=== PATIENT | male | born 1955 | race Caucasian/White ===

== ENCOUNTER 2017-02-02 15:22 | Emergency (ER) | payer OTHER ==
[~2017-02-02] VITALS: Ht 165.1 cm; Wt 63.5 kg
[2017-02-02 15:22] VITALS: BP 151/94
[~2017-02-02 15:22] MED LIST: AMLO5TAB2 PO; CARV3.12 PO; CLIN300C97 PO; FOLI1TAB16 PO; HYDR-3326 PO; RIFA300C4 PO
[2017-02-02] MEDS ORDERED: HYDROCODONE/APAP 10/325MG 1 EA TABLET PO ONE (16:00)
[2017-02-02] MEDS ORDERED: HYDROCODONE/APAP 10/325MG 1 EA TABLET ONE (16:03)
== END 2017-02-02 16:09 | disposition home or self-care (01) ==
LOC: ER 15:23
DX: M54.5 Low back pain (principal); G89.29 Other chronic pain; Z88.0 Allergy status to penicillin; F17.210 Nicotine dependence, cigarettes, uncomplicated; F10.20 Alcohol dependence, uncomplicated; Z59.0 Homelessness
CPT/HCPCS: 99282; A4606; Z7610

== ENCOUNTER 2017-03-15 12:41 | Emergency (ER) | payer OTHER ==
[~2017-03-15] VITALS: Ht 175.3 cm; Wt 70.3 kg
[2017-03-15 12:45] VITALS: BP 118/75
[2017-03-15] MEDS ORDERED: LIDOCAINE HCL/PF 1% 30 ML VIAL TP ONE (13:00)
[2017-03-15] MEDS ORDERED: ACETAMINOPHEN ES 500 MG TABLET PO ONE (13:00)
[2017-03-15] MEDS ORDERED: BACI/NEOM/POLY B OINT PKT 1 UDPKT PACKET TP ONE (13:00)
[2017-03-15] MEDS ORDERED: LIDOCAINE HCL/PF 1% 30 ML SDV ONE (13:05)
[2017-03-15] MEDS ORDERED: ACETAMINOPHEN ES 500 MG TABLET ONE (13:16)
[2017-03-15] MEDS ORDERED: BACI/NEOM/POLY B OINT PKT 1 UDPKT PACKET ONE (13:16)
== END 2017-03-15 15:11 | disposition home or self-care (01) ==
LOC: ER 12:42
DX: S01.81XA Laceration without foreign body of other part of head, initial encounter (principal); M16.0 Bilateral primary osteoarthritis of hip; M85.80 Other specified disorders of bone density and structure, unspecified site; Z59.0 Homelessness; Z88.8 Allergy status to other drugs, medicaments and biological substances; Z88.0 Allergy status to penicillin; V19.3XXA Pedal cyclist (driver) (passenger) injured in unspecified nontraffic accident, initial encounter; Y93.55 Activity, bike riding; Y92.488 Other paved roadways as the place of occurrence of the external cause; Y99.8 Other external cause status
CPT/HCPCS: 73502; 73552; A4606; A6402; J3490; Z7610

== ENCOUNTER 2017-11-22 11:40 | Inpatient (IN) | payer OTHER ==
[2017-11-22] VITALS (18 sets, daily range): BP systolic 87–168; BP diastolic 36–126
[~2017-11-22] VITALS: Ht 170.2 cm; Wt 91.2 kg
[~2017-11-22 11:40] MED LIST changes: +CLIN300C11 PO; -CLIN300C97 PO; -HYDR-3326 PO; +HYDR-3974 PO
--- NOTE | 2017-11-22 11:41 | NUR ---
[id number] FROM [facility]: SEVERE SOB, NITRO x 3 GIVEN IN FIELD BY EMS - NO RELIEF. PT VERBALIZED GOT KICKED ON LEFT SIDE OF RIB. PLACED ON MONITOR. MD ORDERED ON BIPAP IPAP 27 EPAP 10 RATE 39.
[2017-11-22] MEDS ORDERED: NTG 50 MG/D5W250 ML BOTTL 250 ML IV ONE ×2 (11:44→12:00)
[2017-11-22] MEDS ORDERED: FUROSEMIDE 40 MG/4 ML VIAL ONE (11:44)
--- NOTE | 2017-11-22 11:49 | NUR ---
RT PATIENT REC'D IN ER WITH SEVERE SOB, PER DR LR PLACED ON BIPAP 14/07 R20 100%. ALARMS CHECKED + AUDIBLE. MASK HAS MINIMAL LEAK. PATIENT ABLE TO RESPOND AT THIS MOMENT Addendum: 11/22/17 at 1151 by GERMAN LYONS RT Amended: Links added.
[2017-11-22] MEDS ORDERED: FUROSEMIDE 40 MG/4 ML VIAL IV ONE (12:00)
--- NOTE | 2017-11-22 12:10 | NUR ---
SWAIN FR 16 INSERTED DARK RED URINE OUTPUT DR LR MADE AWARE
[2017-11-22 12:47] LABS: INR 1.32 (0.85-1.15)
[2017-11-22 12:50] LABS: CALCIUM, SERUM 8.3 mg/dL (8.5-10.1); CARBON DIOXIDE 16 mmol/L (21-32); CHLORIDE 98 mmol/L (98-107); CREATININE 0.9 mg/dL (0.6-1.3); GLUCOSE 79 mg/dL (74-106); POTASSIUM 6.1 mmol/L (3.5-5.1); SODIUM SERUM 140 mmol/L (136-145); UREA NITROGEN, BLOOD 15 mg/dL (7-18)
[2017-11-22] MEDS ORDERED: SODIUM POLYSTYRENE SULFONATE 15 G/60 ML BOTTLE PO ONE (13:00)
[2017-11-22 13:01] LABS: ALANINE AMINOTRANSFERASE 139 U/L (12-78); ALBUMIN 2.1 g/dL (3.4-5.0); ALKALINE PHOSPHATASE 720 U/L (46-116); ASPARTATE AMINOTRANSFERASE 838 U/L (15-37); B-TYPE NATRIURETIC PEPTIDE 659 PG/ML (0-125); BILIRUBIN,TOTAL 14.6 mg/dL (0.2-1.0); TOTAL PROTEIN, SERUM 6.9 g/dL (6.4-8.2); TROPONIN I 0.374 ng/mL (0.00-0.056)
--- NOTE | 2017-11-22 13:19 | NUR ---
PATIENT ASSIGNED TO ICU 261, RN TO RN REPORT CAN BE GIVEN TO FREDO ADMITTING DR FINLEY DOG SHOW JUDGE PANEL ADMITTING DX HEART FAILURE
[2017-11-22] MEDS ORDERED: LEVOFLOXACIN 750 MG /D5W 150ML PIGGYBACK IV ONE (13:30)
[2017-11-22] MEDS ORDERED: VANCOMYCIN 1 GM in IV D5W 250 ML IV ONE (13:30)
[2017-11-22 13:32] LABS: BASOPHILS % (AUTO) 0.1 % (0.0-2.0); EOSINOPHILS % (AUTO) 0.1 % (0.0-6.0); HEMOGLOBIN 12.7 g/dL (13.5-17.5); LYMPHOCYTES % (AUTO) 7.5 % (20.0-44.0); MONOCYTES # (AUTO) 1.4 /CMM (0.1-1.30); MONOCYTES % (AUTO) 10.1 % (2.0-12.0); NEUTROPHILS # (AUTO) 11.4 /CMM (1.8-8.9); NEUTROPHILS % (AUTO) 82.2 % (43.0-81.0); PLATELET COUNT (AUTO) 215 /CMM (150-450); WHITE BLOOD COUNT (AUTO) 13.8 K/uL (4.3-11.0)
[2017-11-22] MEDS ORDERED: SODIUM POLYSTYRENE SULFONATE 15 G/60 ML BOTTLE ONE (13:44)
--- NOTE | 2017-11-22 13:44 | NUR ---
CALLED PHARMACY FOR A VANCOMYCIN
[2017-11-22] MEDS ORDERED: LEVOFLOXACIN 750 MG /D5W 150ML 150 ML IV ONE (13:45)
--- NOTE | 2017-11-22 13:56 | NUR ---
PAGED SCREENING UNIT REGISTERED NURSE HOSPITALIST DR FINLEY
[2017-11-22 14:00] LABS: HEMATOCRIT 33 % (39-51); MEAN CORPUSCULAR HEMOGLOBIN 41 PG (26.0-33.0); MEAN CORPUSCULAR HGB CONC 36 g/dl (31.0-36.0); MEAN CORPUSCULAR VOLUME 112 fL (80-96)
[2017-11-22 14:01] LABS: RDW COEFFICIENT OF VARIATION 21.7 (11.5-15.0)
[2017-11-22] MEDS ORDERED: BUPR8TAB4 SL (14:10)
[2017-11-22] MEDS ORDERED: DIAZ2TAB PO (14:10)
[2017-11-22 14:17] LABS: BAND % (MANUAL) 8 % (0.0-5.0); LYMPHOCYTES % (MANUAL) 2 % (16-48); MONOCYTES % (MANUAL) 1 % (0-11.0); NEUTROPHILS % (MANUAL) 89 (42-76)
--- NOTE | 2017-11-22 14:29 | NUR ---
gave report to alisha dow ICU room 261 dx acute resp failure admitting dr soares
[2017-11-22 14:44] LABS: ABG BASE EXCESS -4.1 mmol/L; ABG OXYGEN SATURATION 99.1 % (92.0-98.5); ABG PCO2 40.2 mmHg (35.0-45.0); ABG PH 7.342 (7.350-7.450); ABG PO2 330.4 mmHg (75.0-100.0); AaDO2 342.4 mmHg; COHb 0.7 % (0.5-1.5); MetHb 0.5 % (0.0-1.5); O2Hb 97.9 % (94.0-97.0); SITE, ABG Right Radial; VENT MODE, BG BIPAP 25/10 R14 100%
--- NOTE | 2017-11-22 14:45 | NUR ---
PT BACK FROM CT
--- NOTE | 2017-11-22 15:00 | NUR ---
BIPAP 15/5 FIO2 80%
--- NOTE | 2017-11-22 15:03 | NUR ---
RT POST ABG RESULTS AND PER DR LR BIPAP SETTINGS CHANGED TO 01/02 80% Addendum: 11/22/17 at 1504 by GERMAN LYONS RT Amended: Links added.
[2017-11-22] MEDS ORDERED: NTG 50 MG/D5W250 ML BOTTL 250 ML IV PRN ×2 (16:30→18:30)
[2017-11-22] MEDS ORDERED: Calcium Gluconate 0.465 MEQ/ML VIAL IV ONE (16:30)
[2017-11-22] MEDS ORDERED: ONDANSETRON HCL/PF 4 MG/2 ML VIAL IVP PRN (16:30)
[2017-11-22] MEDS ORDERED: IV NS 0.9% 1,000 ML BAG IV ONE (16:30)
[2017-11-22] MEDS ORDERED: IV NS 0.9% 1,000 ML IV PRN (16:30)
[2017-11-22] MEDS ORDERED: FEE PK DOSING 1 MIN EA MC ONE (16:37)
--- NOTE | 2017-11-22 16:45 | NUR ---
PAPER GOODS MACHINE OPERATOR RECEIVED PATIENT FROM THE ER. PATIENT IS ALERT AND ORIENTED X 1-2. 4 PERSON ASSIST GURNEY TO BED TRANSFER. ABLE TO VERBALIZE NEEDS. ON BIPAP FOR RESP SUPPORT. SINUS TACH ON MONITOR. AFEBRILE. SWAIN DRAINING URINE TO GRAVITY. WILL CONTINUE TO MONITOR AND PROVIDE CARE.
[2017-11-22] MEDS: PANTOPRAZOLE 40 MG VIAL IV SCH (17:28)
--- NOTE | 2017-11-22 20:00 | NUR ---
TINNING MACHINE SET UP OPERATOR - NOTES - PT RECEIVED IN BED, ALERT AND ORIENTED X3, PT IS LETHARGIC AND HYPERVENTILATING ON BIPAP, RR 40S-50S. PT 02SAT 100%, LUNG SOUNDS CRACKLES. PT HAS F/C DRAINING MINIMAL DARK BROWN CONCENTRATED URINE. PT HAS 2 IVS L AC 18G AND R AC 20G. PT IS ON IVF NS @ 125 ML/HR. PT NOTED WITH MULTIPLE BRUISES. WILL CONTINUE TO MONITOR
--- NOTE | 2017-11-22 20:10 | NUR ---
KHAI MEJIA AT BEDSIDE TO ASSESS PT
[2017-11-22] MEDS: LEVOFLOXACIN 500 MG /D5W 100ML 500 MG in PREMIX 1 EA IV SCH (20:24)
[2017-11-22] MEDS: MEROPENEM 1 G in IV NS 0.9% 100 ML IV SCH ×2 (20:24→23:47)
--- NOTE | 2017-11-22 21:26 | NUR ---
DR MORGAN AT BEDSIDE TO ASSESS PT, PERFORMED ECHO. PT STILL BREATHING IN 40S 50S. PT COMPLAINED OF NAUSEA, ZOFRAN 4 MG GIVEN. WILL CONTINUE TO MONITOR
--- NOTE | 2017-11-22 22:11 | NUR ---
PT RECEIVED ON BIPAP 01/02, R 20, 80%. PT IS AWAKE AND ABLE TO FOLLOW COMMANDS. BIPAP ALARMS SET AND AUDIBLE. WILL CONTINUE TO MONITOR. Addendum: 11/22/17 at 2216 by PREM FARRELL RT Amended: Links added.
[2017-11-22 22:43] LABS: ABG BASE EXCESS -1.2 mmol/L; ABG OXYGEN SATURATION 97.9 % (92.0-98.5); ABG PCO2 40.1 mmHg (35.0-45.0); ABG PH 7.388 (7.350-7.450); ABG PO2 146.3 mmHg (75.0-100.0); COHb 0.2 % (0.5-1.5); MetHb 0.6 % (0.0-1.5); O2Hb 97.1 % (94.0-97.0); SITE, ABG Left Radial
--- NOTE | 2017-11-22 22:44 | NUR ---
STAT ABG DONE PER KIA. NOTIFIED HAMILTON JOY WITH RESULT. PH 7.38, CO2 40, PaO2 146, HCO3 23. BIPAP SETTINGS 15/5, R 20, 80%.
[2017-11-22 22:53] LABS: CALCIUM, SERUM 7.5 mg/dL (8.5-10.1); CREATININE 1.3 mg/dL (0.6-1.3); POTASSIUM 4.2 mmol/L (3.5-5.1)
[2017-11-22 22:58] LABS: ALBUMIN 1.5 g/dL (3.4-5.0)
--- NOTE | 2017-11-22 23:00 | NUR ---
PER EPIC DIRECTOR MARTHA ADAM, STOP IVF @ 125 ML/HR BECAUSE PT SOUNDS CONGESTED AND FLUID OVERLOADED, WILL CARRY OUT ORDER
[2017-11-22 23:07] LABS: TROPONIN I 1.179 ng/mL (0.00-0.056)
[2017-11-22] MEDS ORDERED: ENOXAPARIN SODIUM 80 MG/0.8 ML DISP.SYRIN SQ ONE (23:30)
[2017-11-22] MEDS ORDERED: ALBUMIN 25% 200 ML IV ONE (23:51)
--- NOTE | 2017-11-22 23:53 | NUR ---
PT FOUND OFF BIPAP. PT WAS PLACED ON NRB PER KIA.
[2017-11-23] VITALS (59 sets, daily range): BP systolic 72–131; BP diastolic 41–80
[2017-11-23] MEDS ORDERED: FUROSEMIDE 40 MG/4 ML VIAL IV ONE
[2017-11-23] MEDS: ALBUMIN 25% 25 GM in PREMIX 1 EA IV SCH ×4 (00:03→02:22)
[2017-11-23] MEDS: VANCOMYCIN 1 GM in IV D5W 250 ML IV SCH ×2 (00:36→13:46)
--- NOTE | 2017-11-23 01:00 | NUR ---
MARTHA ADAM INSTALLATION TECH AT BEDSIDE TO ASSESS PT, NEW ORDERS RECEIVED
[2017-11-23] MEDS ORDERED: ALBUMIN 25% 100 ML IV ONE (01:13)
[2017-11-23 02:37] LABS: OCCULT BLOOD STOOL POSITIVE (NEGATIVE)
[2017-11-23] MEDS: IPRATROPIUM NEB FS 0.5 MG/2.5 ML AMPUL.NEB NEB SCH ×6 (03:13→19:50)
[2017-11-23] MEDS: ALBUTEROL FS 2.5 MG/0.5 ML VIAL.NEB NEB SCH ×6 (03:13→19:50)
--- NOTE | 2017-11-23 03:40 | NUR ---
PT PLACED BACK ON BIPAP FIO2 100% BECAUSE HE WAS DESATTING 88% ON NRB 15LPM. PT LUNG SOUNDS CRACKLES AND CANNOT COUGH UP SECRETIONS
[2017-11-23] MEDS: LORAZEPAM INJ 2 MG/ML VIAL IV PRN ×2 (03:45→13:56)
--- NOTE | 2017-11-23 03:51 | NUR ---
PT PLACED BACK ON BIPAP DO TO LOW O2 SAT ON NRB. Addendum: 11/23/17 at 0352 by PREM FARRELL RT Amended: Links added.
[2017-11-23] MEDS: MEROPENEM 1 G in IV NS 0.9% 100 ML IV SCH ×3 (04:51→21:00)
[2017-11-23 05:27] LABS: ALBUMIN 2.9 g/dL (3.4-5.0); BILIRUBIN,TOTAL 12.6 mg/dL (0.2-1.0); CALCIUM, SERUM 7.6 mg/dL (8.5-10.1); CREATININE 1.3 mg/dL (0.6-1.3); POTASSIUM 4.2 mmol/L (3.5-5.1); TOTAL PROTEIN, SERUM 5.8 g/dL (6.4-8.2)
[2017-11-23 05:33] LABS: TROPONIN I 0.724 ng/mL (0.00-0.056)
[2017-11-23 05:50] LABS: BASOPHILS # (AUTO) 0.1 /CMM (0.0-0.2); BASOPHILS % (AUTO) 0.9 % (0.0-2.0); EOSINOPHILS % (AUTO) 0.1 % (0.0-6.0); LYMPHOCYTES # (AUTO) 1.1 /CMM (0.8-4.8); LYMPHOCYTES % (AUTO) 14.3 % (20.0-44.0); MONOCYTES # (AUTO) 0.3 /CMM (0.1-1.30); NEUTROPHILS # (AUTO) 6.3 /CMM (1.8-8.9); NEUTROPHILS % (AUTO) 80.7 % (43.0-81.0); WHITE BLOOD COUNT (AUTO) 7.8 K/uL (4.3-11.0)
[2017-11-23 06:09] LABS: RED BLOOD CELL COUNT(AUTO) 2.34 MIL/uL (4.5-6.0)
[2017-11-23 06:14] LABS: HEMATOCRIT 26 % (39-51)
[2017-11-23 06:15] LABS: HEMOGLOBIN 10.4 g/dL (13.5-17.5); MEAN CORPUSCULAR HEMOGLOBIN 42 PG (26.0-33.0); MEAN CORPUSCULAR HGB CONC 37 g/dl (31.0-36.0); MEAN CORPUSCULAR VOLUME 113 fL (80-96); RDW COEFFICIENT OF VARIATION 21.3 (11.5-15.0)
--- NOTE | 2017-11-23 07:54 | NUR ---
ICU/RN INITIAL NOTES,AM RECEIVED REPORT FROM NIGHT NURSE. PT RESTING IN BED. ON BIPAP WITH SETTINGS ORDERED BY MD, NO ACUTE DISTRESS NOTED AT THIS TIME. PT ALERT, AWAKE, FOLLOWS COMMANDS. ON TELE, PT SINUS. NPO AT THIS TIME. SWAIN CATH IN PLACE, DRAINING ROBIN URINE. PIV'S PATENT AND INTACT, NO S/S OF INFECTION OR INFILTRATION NOTED. PT DENIES ANY CHEST PAIN OR SOB ON BIPAP, WILL CONTINUE TO CLOSELY MONITOR. VSS. ALL SAFETY MEASURES TAKEN, BED IN LOW POSITION, SIDE RAILS UP, CALL LIGHT WITHIN REACH, WILL CONTINUE CARE.
[2017-11-23 08:29] LABS: ABG BASE EXCESS 0.7 mmol/L; ABG OXYGEN SATURATION 96.6 % (92.0-98.5); ABG PCO2 39.6 mmHg (35.0-45.0); ABG PH 7.421 (7.350-7.450); ABG PO2 105.8 mmHg (75.0-100.0); COHb 0.2 % (0.5-1.5); MetHb 0.5 % (0.0-1.5); O2Hb 95.9 % (94.0-97.0); SITE, ABG Right Radial; VENT MODE, BG ST 15/5 RR20 80%
[2017-11-23 08:39] LABS: PLATELET COUNT (AUTO) 105 /CMM (150-450)
[2017-11-23] MEDS: ENOXAPARIN SODIUM 80 MG/0.8 ML DISP.SYRIN SQ SCH ×2 (08:48→21:10)
[2017-11-23] MEDS: PANTOPRAZOLE 40 MG VIAL IV SCH (08:48)
[2017-11-23 09:26] LABS: BAND % (MANUAL) 36 % (0.0-5.0); LYMPHOCYTES % (MANUAL) 16 % (16-48); METAMYELOCYTES % 4 % (0-0); MONOCYTES % (MANUAL) 12 % (0-11.0); MYELOCYTES % 7 % (0-0); NEUTROPHILS % (MANUAL) 25 (42-76)
--- NOTE | 2017-11-23 12:40 | NUR ---
ICU/RN: PER PT REQUEST PT PLACED ON NONREBREATHER MASK 15LITERS, OK BY . WILL CONTINUE TO MONITOR AND ASSESS
--- NOTE | 2017-11-23 13:35 | NUR ---
ICU/RN: AT BEDSIDE. INFORMED HIM OF FREQUENT LOOSE BLACK STOOL. GI CONSULT ORDERED. PER MD NO STOOL SAMPLE NEEDED. ATIVAN WILL BE GIVEN PRN TO PREVENT ALCOHOL WITHDRAWAL. WILL CONTINUE TO MONITOR AND ASSESS.
--- NOTE | 2017-11-23 14:49 | NUR ---
RT MED NOTE UNABLE TO ADMINISTER HHN MED, PT CURRENTLY ON NRB MASK W/ SPO2 90-92%. UNABLE TO MAINTAIN ADEQUATE SPO2 ON HHN MASK
[2017-11-23] MEDS: ASPIRIN 81 MG TAB.CHEW PO SCH (14:53)
--- NOTE | 2017-11-23 15:30 | NUR ---
ICU/RN: PT DESATURATING, INCREASED WORK OF BREATHING, PLACED BACK ON BIPAP WITH PRESCRIBED SETTINGS. WILL CONTINUE TO MONITOR AND ASSESS
--- NOTE | 2017-11-23 16:01 | NUR ---
Manager Fine Consult was requested by Dr. Green regarding homelessness. Pt is a 62 year old male who was admitted to [facility] for shortness of breath. SW met with pt at bedside. Patient was difficult to understand due to his medical condition. Pt is alert and oriented x3. Pt states that he has been residing at [facility] ([address] [place] [address]) for the past 6 months. The pt's emergency contact is Negra Helton ([phone]). Patient denies any current suicidal or homicidal ideation. Patient denies any auditory or visual hallucinations. Patient denied smoking cigarettes, drinking, and doing drugs. However, upon admission pt.s alcohol level was 4. Patient reports receiving $1,800 in reduced fpc. SW provided patient with homeless resources including shelters, food gabriel resources, substance abuse referrals ([facility] [phone], [facility] [phone], and [facility]- [phone]) and local mental health clinics ([facility] [phone], [facility] [phone], and [facility] [phone]). Patient at this time is wanting to discharge to [facility] once he is medically cleared. He is refusing penitentiary placement. CLEMENCIA updated HAMILTON Maria regards to pt's disposition and homeless resources provided. Homeless Patient Waiver was completed and placed in the pt's chart.
--- NOTE | 2017-11-23 18:37 | NUR ---
ICU/RN: ENDING NOTES,AM REPORT WILL BE ENDORSED TO NIGHT NURSE FOR CONTINUATION OF CARE. ALL NEEDS MET. PT ON BIPAP WITH SETTINGS ORDERED BY MD.NO ACUTE DISTRESS NOTED AT THIS TIME. PT SINUS TACH ON TELE. PIV PATENT AND INTACT, NO S/S OF INFECTION OR INFILTRATION NOTED. PT BATHE, LINENS CHANGED, TURNED AND REPOSITIONED. SAFETY MEASURES TAKEN, BED IN LOW POSITION, SIDE RAILS UP, CALL LIGHT WITHIN REACH. WILL ENDORSE TO GET CONSENT FOR EGD WHEN BIPAP IS OFF, PT ALERT, AWAKE, FOLLOWS COMMANDS. POSSIBLE EGD IN AM
--- NOTE | 2017-11-23 19:30 | NUR ---
Received patient Dx: RESPIRATORY FAILURE secondary to PNA,NSTEMI,LIVER FAILURE,KIDNEY FAILURE Awake alert and oriented x 3.Respiration unlabored,tachypneic 40's on BIPAP rate 20 ,15/5,fio2 80% SPO2s 93%-95%.ST 105-107.NPO status with NS at TKO.FC to gravity drainage with dark gregorio urine. Denies pain.Call light at bedside within easy reach.
[2017-11-23] MEDS: LEVOFLOXACIN 500 MG /D5W 100ML 500 MG in PREMIX 1 EA IV SCH (19:33)
--- NOTE | 2017-11-23 20:25 | NUR ---
Patient incontinent of loose stool.Stool for C-diff collected and sent to lab.Perineal care done.Noted redness to perineal area.Remedy Z guard applied.Turned and repositioned.
[2017-11-23] MEDS: Z GUARD REMEDY 2 OZ OINT TP PRN ×3 (21:13→21:25)
[2017-11-23] MEDS: IV NS 0.9% 1,000 ML IV PRN (21:25)
--- NOTE | 2017-11-23 21:25 | NUR ---
Patient hemodynamically unstable.SBP's 70',low 80's. notified with orders received and carried out.
[2017-11-23] MEDS: Z GUARD REMEDY 2 OZ OINT TP SCH (21:26)
[2017-11-23] MEDS: METRONIDAZOLE 500MG/ NS 100ML 500 MG in PREMIX 1 EA IV SCH (21:37)
[2017-11-24] VITALS (108 sets, daily range): BP systolic 70–158; BP diastolic 31–86
[2017-11-24] MEDS: ALBUTEROL FS 2.5 MG/0.5 ML VIAL.NEB NEB SCH ×6 (00:07→20:11)
[2017-11-24] MEDS: IPRATROPIUM NEB FS 0.5 MG/2.5 ML AMPUL.NEB NEB SCH ×6 (00:07→20:11)
[2017-11-24] MEDS ORDERED: NOREPINEPHRINE 4 MG/4 ML AMPUL IV ONE (02:03)
[2017-11-24] MEDS: NOREPINEPHRINE 8 MG in IV D5W 500 ML IV PRN ×2 (02:30→23:10)
--- NOTE | 2017-11-24 02:30 | NUR ---
Patient BP remains unstable.Levophed gtt started at 1 mcg/min and will titrate accordingly.
[2017-11-24 04:29] LABS: CALCIUM, SERUM 7.1 mg/dL (8.5-10.1); CREATININE 1.7 mg/dL (0.6-1.3); POTASSIUM 3.6 mmol/L (3.5-5.1)
[2017-11-24] MEDS: MEROPENEM 1 G in IV NS 0.9% 100 ML IV SCH ×3 (04:30→22:10)
[2017-11-24] MEDS: METRONIDAZOLE 500MG/ NS 100ML 500 MG in PREMIX 1 EA IV SCH ×3 (05:30→21:12)
--- NOTE | 2017-11-24 08:00 | NUR ---
PATIENT AWAKE BUT APPEARS SOB ON BIPAP WITH PERIODS CONFUSION. KEEPS ON PULLING CABLES ON EKG AND BP. ATTEMPTS TO REMOVE BIPAP MASK. TACHYPNEIC AT HIGH 30'S. SPO2 92-94%. ONGOING LEVOPHED DRIP AT 3 MCG/MIN TO KEEP MAP >65. OLIGURIC WITH TEA COLORED URINE. KEPT ON NPO.
[2017-11-24] MEDS: PANTOPRAZOLE 40 MG VIAL IV SCH ×2 (08:28→18:12)
[2017-11-24] MEDS: Z GUARD REMEDY 2 OZ OINT TP SCH (08:29)
--- NOTE | 2017-11-24 08:30 | NUR ---
PATIENT SEEN BY DR. MORGAN. MD AWARE OF OVERNIGHTS EVENT AND PATIENT CONDITION. PER -OKANITA NOT TO GIVE LOVENOX AND ASPIRIN DUE TO POSSIBLE GIB.
[2017-11-24] MEDS: ASPIRIN 81 MG TAB.CHEW PO SCH (09:00)
[2017-11-24] MEDS: ENOXAPARIN SODIUM 80 MG/0.8 ML DISP.SYRIN SQ SCH ×2 (09:00→21:12)
--- NOTE | 2017-11-24 09:00 | NUR ---
PATIENT SEEN AND EXAMINED BY DR. VASQUEZ FOR RENAL FF UP. MD AWARE OF OLIGURIC STATE.
--- NOTE | 2017-11-24 09:50 | NUR ---
PATIENT SEEN AND EXAMINED BY DR. FINLEY . DISCUSSED WITH MD PRESENT CONDITION. MD AWARE OF MOTTLED LOWER EXTREMITIES, PT. ON LEVOPHED-OKAY START IVF WITH D5 NS AT 100 ML/HR FOR NPO STATUS AND DECREASED BS , DECREASED UO. ORDERES NOTED.
[2017-11-24 10:11] LABS: HEMOGLOBIN 10.4 g/dL (13.5-17.5); RED BLOOD CELL COUNT(AUTO) 2.75 MIL/uL (4.5-6.0); WHITE BLOOD COUNT (AUTO) 5.9 K/uL (4.3-11.0)
[2017-11-24 10:12] LABS: BASOPHILS % (AUTO) 0.5 % (0.0-2.0); EOSINOPHILS % (AUTO) 0.4 % (0.0-6.0); HEMATOCRIT 31 % (39-51); LYMPHOCYTES # (AUTO) 0.5 /CMM (0.8-4.8); LYMPHOCYTES % (AUTO) 7.7 % (20.0-44.0); MEAN CORPUSCULAR HEMOGLOBIN 40 PG (26.0-33.0); MEAN CORPUSCULAR HGB CONC 36 g/dl (31.0-36.0); MEAN CORPUSCULAR VOLUME 112 fL (80-96); MONOCYTES % (AUTO) 1.4 % (2.0-12.0); NEUTROPHILS # (AUTO) 5.6 /CMM (1.8-8.9); PLATELET COUNT (AUTO) 102 /CMM (150-450); RDW COEFFICIENT OF VARIATION 21.9 (11.5-15.0)
[2017-11-24 10:13] LABS: MONOCYTES # (AUTO) 0.1 /CMM (0.1-1.30)
--- NOTE | 2017-11-24 10:15 | NUR ---
PATIENT WITH INCREASED TACHYPNEA ON BIPAP AT 40'S. DR. CAMP ROUNDING AT THIS TIME. MD TO INTUBATE PATIENT.
--- NOTE | 2017-11-24 10:25 | NUR ---
INTUBATED BY DR. CAMP DUE TO INCREASED WOB ON BIPAP. ET TUBE SIZE 7.5 AND SECURED @ 23 CM LIPLINE. CO2 COLOR CHANGE TO GOLD COLOR POST INTUBATION WITH CLEAR BILATERAL BREATH SOUNDS. SYMMETRICAL CHEST RISE POST INTUBATION. VENT PARAMETERS BELLOW SET PER DR. CAMP: AC 20 VT 500ML FIO2 100% PEEP +5 VENT PLUGGED INTO RED OUTLET WITH ALARMS ON AND FUNCTIONING. AMBUBAG @ HOB. Addendum: 11/24/17 at 1052 by ANDREEA MCGRAW RT Amended: Links added.
--- NOTE | 2017-11-24 10:25 | NUR ---
PATIENT INTUBATED BY DR. CAMP WITH ETT 7.5 AT [facility] ON 1ST ATTEMPT WITH GOOD BILATERAL BS. STAT CXR ORDERED.
[2017-11-24] MEDS: IV D5/ 0.9% NACL 1,000 ML IV PRN (10:44)
[2017-11-24] MEDS: IV NS 0.9% 1,000 ML IV PRN (10:50)
[2017-11-24] MEDS ORDERED: VECURONIUM 10 MG VIAL IV ONE (11:01)
[2017-11-24] MEDS ORDERED: ETOMIDATE 2 MG/ML VIAL IV ONE (11:01)
[2017-11-24] MEDS ORDERED: SUCCINYLCHOLINE CHLORIDE 20 MG/ML VIAL IV ONE (11:01)
[2017-11-24 11:10] LABS: BAND % (MANUAL) 33 % (0.0-5.0); LYMPHOCYTES % (MANUAL) 7 % (16-48); METAMYELOCYTES % 3 % (0-0); MONOCYTES % (MANUAL) 4 % (0-11.0); MYELOCYTES % 1 % (0-0); NEUTROPHILS % (MANUAL) 52 (42-76)
--- NOTE | 2017-11-24 11:30 | NUR ---
POST INTUBATION ABG RESULTS RELAYED TO DR. CAMP. PH 7.13, PCO2 74, PO2 62, HCO3 24. ORDERS RECEIVED . VENT CHANGES DONE BY RT. SODIUM BICARB 1 AMP GIVEN. ABG AGAIN AT 1500.
[2017-11-24 11:32] LABS: ABG BASE EXCESS -5.8 mmol/L; ABG OXYGEN SATURATION 79.9 % (92.0-98.5); ABG PCO2 73.9 mmHg (35.0-45.0); ABG PH 7.137 (7.350-7.450); ABG PO2 61.9 mmHg (75.0-100.0); AaDO2 577.2 mmHg; COHb 0.7 % (0.5-1.5); MetHb 0.7 % (0.0-1.5); O2Hb 78.8 % (94.0-97.0); PEEP,BG 5 cm H2O; SITE, ABG Right Brachial; VT, ABG 500 mL
--- NOTE | 2017-11-24 11:48 | NUR ---
VENT ROLANDO JORGE ORDER: AC 24 Addendum: 11/24/17 at 1149 by ANDREEA MCGRAW RT Amended: Links added.
[2017-11-24] MEDS ORDERED: SODIUM BICARBONATE SYR 50 MEQ/50 ML DISP.SYRIN IV ONE (12:00)
--- NOTE | 2017-11-24 12:00 | NUR ---
PATIENT SPO2 REMAINS 84-86 ON 100 % FIO2. DR. CAMP AWARE WITH NO FURTHER ORDERS AT THIS TIME. PICC LINE NURSE AT BEDSIDE FOR EMERGENCY PICC LINE INSERTION PER DR. FINLEY ORDERS. PATIENT ON VASOPRESSORS AND HEMODYNAMICALLY UNSTABLE.
[2017-11-24] MEDS: methylPREDNISolone SOD SUCC 40 MG/ML VIAL IV SCH ×2 (13:22→16:15)
--- NOTE | 2017-11-24 13:35 | NUR ---
PATIENT SEEN BY DR. CAMP AT BEDSIDE- NO FURTHER ORDERS AT THIS TIME. CONTINUE CURRENT PLAN.
--- NOTE | 2017-11-24 15:06 | NUR ---
UNEVENTFUL PICC INSERTION. OK TO USE PICC LINE.
[2017-11-24 15:43] LABS: ABG BASE EXCESS -2.4 mmol/L; ABG OXYGEN SATURATION 90.2 % (92.0-98.5); ABG PCO2 54.2 mmHg (35.0-45.0); ABG PH 7.279 (7.350-7.450); ABG PO2 71.3 mmHg (75.0-100.0); AaDO2 587.5 mmHg; COHb 0.8 % (0.5-1.5); MetHb 0.7 % (0.0-1.5); O2Hb 88.8 % (94.0-97.0); PEEP,BG 5 cm H2O; SITE, ABG Right Brachial; VT, ABG 500 mL
--- NOTE | 2017-11-24 15:45 | NUR ---
ABG RESULTS RELAYED TO DR. CAMP- PH7.27, PCO2 54.2, PO2 71.3, HCO3 24.8. NO FURTHER ORDERS GIVEN. NO VENT CHANGES GIVEN. KEEP ON CURRENT VENT SETTINGS.
[2017-11-24] MEDS ORDERED: LACTOBACILLUS RHAMNOSUS GG 1 EACH CAP.SPRINK PO SCH (17:00)
--- NOTE | 2017-11-24 17:00 | NUR ---
PATIENT PLACED ON C. DIFF ISOLATION. + C. DIFF. ALTON SINGH FOR GI MADE AWARE. WILL CARRY OUT ORDERS.
[2017-11-24 17:24] LABS: ALBUMIN 2.3 g/dL (3.4-5.0); BILIRUBIN,DIRECT 6.6 mg/dL (0.0-0.2); BILIRUBIN,TOTAL 9.2 mg/dL (0.2-1.0); TOTAL PROTEIN, SERUM 5.5 g/dL (6.4-8.2)
[2017-11-24] MEDS: PROPOFOL 100 ML IV PRN ×2 (17:49→21:22)
[2017-11-24] MEDS: VANCOMYCIN HCL 125 MG/2.5 ML ORAL.SUSP PO SCH ×2 (18:12→23:38)
[2017-11-24] MEDS: LACTULOSE 10 G/15 ML UDC (PYXIS) PO SCH ×2 (18:12→22:10)
[2017-11-24] MEDS: RIFAXIMIN 550 MG TABLET PO SCH (18:13)
[2017-11-24 18:57] LABS: APPEARANCE,URINE CLOUDY (CLEAR); BILIRUBIN,URINE 3+ (NEGATIVE); BLOOD, URINE TRACE-INTA Ery/uL (NEGATIVE); COLOR,URINE BROWN (YELLOW); KETONES,URINE 1+ (NEGATIVE); LEUKOCYTE ESTERASE ,URINE TRACE (NEGATIVE); NITRITE, URINE POSITIVE (NEGATIVE); PROTEIN,URINE 1+ mg/dl (NEGATIVE); UGLUCOSE NEGATIVE (NEGATIVE)
--- NOTE | 2017-11-24 19:00 | NUR ---
ONGOING TITRATION OF LEVOPHED FOR BP SUPPORT. CURRENTLY AT 8 MCG/MIN. STARTED ON DIPRIVAN DRIP -NOW AT 30 MCG/KG/MIN. SPUTUM SAMPLE SENT. URINE SAMPLE SENT. NO BM ON MY SHIFT. PATIENT EX- VISITED. PER EX -PATIENT HAS 3 BROTHERS WHO ARE ALL ESTRANGED TO PATIENT BUT WILL NOTIFY THEM OF PATIENT CONDITION.
[2017-11-24 19:05] LABS: CREATININE, URINE 268.4 MG/DL (30.0-125.0); URINE TOTAL PROTEIN 126.5 mg/dL (0-11.9)
[2017-11-24 19:37] LABS: BACTERIA,URINE Few /HPF (None Seen); RBC,URINE 0-2 /HPF (0-2); SQUAMOUS EPITHELIAL CELL,UR Rare /HPF (None Seen); URINE AMORPHOUS URATE Moderate /HPF (None Seen)
[2017-11-24] MEDS: LEVOFLOXACIN 500 MG /D5W 100ML 500 MG in PREMIX 1 EA IV SCH (19:42)
--- NOTE | 2017-11-24 20:00 | NUR ---
Received patient sedated on Diprivan gtt @ 30 mcg currently on vent support with prescribed settings. No distress noted.VS stable.SR per monitor with Levophed gtt @ 8 mcg/min for BP support and will titrate accordingly.Maintained on NPO status with ivf infusing well.OGT clamped and placement verified. FC to gravity no urine output noted at this time.Turned and repositioned.Contact precaution for C-diff implemented.All iv's infusing well via richie picc line.Continue monitoring.
[2017-11-24 21:19] LABS: EOSINOPHIL,URINE None Seen
--- NOTE | 2017-11-24 22:30 | NUR ---
At 2225 Noted patient tele suddenly went to SVT 170's-180's.Called to .No orders received. States can't do anything patient on pressor.
--- NOTE | 2017-11-24 22:44 | NUR ---
SVT non sustained.AT this time patient tele shows ST 116- 118 without intervention.Continue monitoring.
[2017-11-24] MEDS: LINEZOLID RTU BAG 600 MG in PREMIX 1 EA IV SCH (23:03)
[2017-11-25] VITALS (81 sets, daily range): BP systolic 81–148; BP diastolic 25–87
[2017-11-25] MEDS: MORPHINE SULFATE INJ 4 MG/ML DISP.SYRIN IV PRN (02:30)
--- NOTE | 2017-11-25 02:30 | NUR ---
Patient grimacing during patient care.Paroxysmal SVT noted 170's-180's.BP stable. notified with order.PRN Morphine 2 mg iv given.Will reassess response to medication.
--- NOTE | 2017-11-25 02:35 | NUR ---
Patient with sustained SVT 170's,180's BP stable on Levophed gtt infusing at 14 mcg/min. notified with orders received and carried out.
--- NOTE | 2017-11-25 02:47 | NUR ---
Unable to administer medication Adenosin at this time patient converted to ST 108-108.Continue monitoring.
[2017-11-25] MEDS ORDERED: ADENOSINE 6 MG/2 ML VIAL IVP PRN ×3 (03:00)
[2017-11-25] MEDS ORDERED: AMIODARONE 900 MG in IV D5W 482 ML IV PRN (03:00)
[2017-11-25] MEDS ORDERED: AMIODARONE 150 MG in IV D5W 100 ML IV ONE (03:00)
[2017-11-25] MEDS: IV D5/ 0.9% NACL 1,000 ML IV PRN ×2 (03:01→17:50)
[2017-11-25] MEDS: IPRATROPIUM NEB FS 0.5 MG/2.5 ML AMPUL.NEB NEB SCH ×7 (04:06→23:37)
[2017-11-25] MEDS: ALBUTEROL FS 2.5 MG/0.5 ML VIAL.NEB NEB SCH ×7 (04:06→23:37)
[2017-11-25] MEDS: LACTULOSE 10 G/15 ML UDC (PYXIS) PO SCH ×4 (04:37→22:25)
[2017-11-25] MEDS: MEROPENEM 1 G in IV NS 0.9% 100 ML IV SCH ×3 (05:00→22:00)
[2017-11-25] MEDS: PROPOFOL 100 ML IV PRN ×3 (05:04→18:24)
[2017-11-25 05:12] LABS: CALCIUM, SERUM 6.3 mg/dL (8.5-10.1); CREATININE 2.9 mg/dL (0.6-1.3); POTASSIUM 4.1 mmol/L (3.5-5.1)
[2017-11-25] MEDS: VANCOMYCIN HCL 125 MG/2.5 ML ORAL.SUSP PO SCH ×4 (06:00→23:59)
[2017-11-25] MEDS: METRONIDAZOLE 500MG/ NS 100ML 500 MG in PREMIX 1 EA IV SCH ×3 (06:00→21:01)
--- NOTE | 2017-11-25 06:30 | NUR ---
NO further changes to cardiac rhythm.Amiodarone gtt not started.Patient remains sedated.No acute distress noted.Diprivan gtt infusing at 30 mcg and Levophed gtt at 10 mcg.All due medications administered. Turned and repositioned.No BM noted.Urine specimen sent.All needs attended.
--- NOTE | 2017-11-25 08:00 | NUR ---
RN NOTES RECEIVED PT IN BED, SEDATED ON DIPRIVAN DRIP. PT INTUBATED ETT 7.5 22CM ON LIPLINE WITH VENT SETTINGS PRESRCIBEDl: AC 24 TV 500 FIO2 100% PEEP 5. SR ON AUTOMOBILE SERVICE STATION MECHANIC. OGT CLAMPED. MYNOR PICC LINE CDI, ONGOING LEVOPHED@8MCG/MIN, DIPRIVAN@30MCG/KG/MIN, IVF D5NS@100ML/HR. FC PATENT, MIN URINE OUTPUT NOTED AT THIS TIME, HEMATURIA NOTED. BILATERAL SOFT WRIST RESTRAINTS RELEASED AND CHECKED FOR CIRCULATION. REPOSITIONED FOR COMFORT, SAFETY MAINTAINED. WILL CONT TO MONITOR
[2017-11-25] MEDS: ENOXAPARIN SODIUM 80 MG/0.8 ML DISP.SYRIN SQ SCH ×2 (08:25→21:05)
[2017-11-25] MEDS: PANTOPRAZOLE 40 MG VIAL IV SCH ×2 (08:26→17:08)
[2017-11-25] MEDS: methylPREDNISolone SOD SUCC 40 MG/ML VIAL IV SCH ×3 (08:26→17:08)
[2017-11-25] MEDS: RIFAXIMIN 550 MG TABLET PO SCH ×2 (08:26→17:08)
[2017-11-25] MEDS: ASPIRIN 81 MG TAB.CHEW PO SCH (08:26)
[2017-11-25] MEDS: Z GUARD REMEDY 2 OZ OINT TP SCH (08:27)
[2017-11-25] MEDS: LINEZOLID RTU BAG 600 MG in PREMIX 1 EA IV SCH ×2 (08:33→22:00)
[2017-11-25] MEDS: NOREPINEPHRINE 8 MG in IV D5W 500 ML IV PRN (08:45)
[2017-11-25 09:43] LABS: RED BLOOD CELL COUNT(AUTO) 2.89 MIL/uL (4.5-6.0); WHITE BLOOD COUNT (AUTO) 8.2 K/uL (4.3-11.0)
[2017-11-25 09:44] LABS: BASOPHILS % (AUTO) 0.1 % (0.0-2.0); EOSINOPHILS % (AUTO) 0.1 % (0.0-6.0); HEMATOCRIT 31 % (39-51); HEMOGLOBIN 10.4 g/dL (13.5-17.5); MEAN CORPUSCULAR HEMOGLOBIN 36 PG (26.0-33.0); MEAN CORPUSCULAR HGB CONC 34 g/dl (31.0-36.0); MEAN CORPUSCULAR VOLUME 106 fL (80-96); NEUTROPHILS % (AUTO) 87.8 % (43.0-81.0); PLATELET COUNT (AUTO) 96 /CMM (150-450); RDW COEFFICIENT OF VARIATION 22.2 (11.5-15.0)
[2017-11-25 09:45] LABS: LYMPHOCYTES # (AUTO) 0.6 /CMM (0.8-4.8); MONOCYTES # (AUTO) 0.4 /CMM (0.1-1.30); NEUTROPHILS # (AUTO) 7.2 /CMM (1.8-8.9)
[2017-11-25 09:48] LABS: BAND % (MANUAL) 16 % (0.0-5.0); LYMPHOCYTES % (MANUAL) 5 % (16-48); METAMYELOCYTES % 1 % (0-0); MONOCYTES % (MANUAL) 8 % (0-11.0); NEUTROPHILS % (MANUAL) 70 (42-76)
[2017-11-25 09:50] LABS: ABG OXYGEN SATURATION 93.5 % (92.0-98.5); ABG PCO2 47.4 mmHg (35.0-45.0); AaDO2 583.6 mmHg; COHb 0.3 % (0.5-1.5); MetHb 0.7 % (0.0-1.5); O2Hb 92.6 % (94.0-97.0); SITE, ABG Right Radial; VENT MODE, BG AC 24 500 100% +5
[2017-11-25] MEDS ORDERED: OCTREOTIDE 1,250 MCG in IV NS 0.9% 247.5 ML IV PRN ×4 (10:30)
[2017-11-25] MEDS: MIDODRINE HCL (5MG) 5 MG TABLET PO SCH ×2 (12:18→17:09)
[2017-11-25 13:06] LABS: CREATININE, URINE 228.5 MG/DL (30.0-125.0); URINE TOTAL PROTEIN 264.3 mg/dL (0-11.9)
[2017-11-25 13:06] LABS: APPEARANCE,URINE SL CLOUDY (CLEAR); BILIRUBIN,URINE 2+ (NEGATIVE); BLOOD, URINE TRACE-INTA Ery/uL (NEGATIVE); COLOR,URINE AMBER (YELLOW); KETONES,URINE 1+ (NEGATIVE); LEUKOCYTE ESTERASE ,URINE NEGATIVE (NEGATIVE); NITRITE, URINE POSITIVE (NEGATIVE); PH,URINE 6.5 (5.0-8.0); PROTEIN,URINE 2+ mg/dl (NEGATIVE); UGLUCOSE TRACE mg/dL (NEGATIVE)
[2017-11-25 13:12] LABS: BACTERIA,URINE Few /HPF (None Seen); MUCUS,URINE Few /LPF (None Seen); SQUAMOUS EPITHELIAL CELL,UR 0-2 /HPF (None Seen); URINE AMORPHOUS URATE Moderate /HPF (None Seen); WBC,URINE 0-2 /HPF (0-3)
[2017-11-25 13:26] LABS: EOSINOPHIL,URINE None Seen
--- NOTE | 2017-11-25 19:03 | NUR ---
RN NOTES PT IN BED, INTUBATED ETT 7.5 22 CM ON LIPLINE WITH VENT SETTINGS PRESCRIBED: AC 24 TV 500 FIO2 80% PEEP 5. SR ON FUNERAL CAR DRIVER. OGT CLAMPED. MYNOR PICC LINE CDI, ONGOING LEVOPHED@2MCG/MIN, DIPRIVAN@35MCG/KG/MIN, IVF D5NS@125ML/HR. FC PATENT, MIN URINE OUTPUT NOTED AT THIS TIME, HEMATURIA NOTED. BILATERAL SOFT WRIST RESTRAINTS RELEASED AND CHECKED FOR CIRCULATION. REPOSITIONED FOR COMFORT, BED BATH PROVIDED. SAFETY MAINTAINED. ENDORSED TO DUNG VILLASENOR FOR CONTINUITY OF CARE
--- NOTE | 2017-11-25 19:30 | NUR ---
Received patient sedated on Diprivan gtt at 40 mcg.Responsive to tactile stimuli.Maintained on same prescribed vent support.No respiratory distress noted.SR 60's-70's with Levophed drip infusing for BP support to keep MAP>65.NPO with OGT clamped and placement verified.IV hydration in progress. Oliguric marie cath to gravity draining tea colored urine.Turned and repositioned.Contact isolation precaution maintained.Continue monitoring.
--- NOTE | 2017-11-25 19:40 | NUR ---
Verified Sandostatin drip from pharmacist Nida if patient needs Sandostatin drip since its ordered PRN.At 10.30 am it was dc'd by .But according to Nida it was reordered by same MD.Sandostatin gtt started at 10 ml/hr per order and infusing well via left AC.
[2017-11-25] MEDS: LEVOFLOXACIN 500 MG /D5W 100ML 500 MG in PREMIX 1 EA IV SCH (19:49)
[2017-11-25] MEDS ORDERED: IV NS 0.9% 250 ML IV ONE (21:30)
--- NOTE | 2017-11-25 22:00 | NUR ---
Patient resting.VS stable.No distress noted.Turned and repositioned offloading pressure points.
[2017-11-26] VITALS (68 sets, daily range): BP systolic 63–148; BP diastolic 25–82
[2017-11-26] MEDS: PROPOFOL 100 ML IV PRN ×4 (01:24→21:00)
--- NOTE | 2017-11-26 02:00 | NUR ---
Patient am bed bath rendered.Complete linens changed.All iv's infusing well.No BM noted. Lactulose administered per order. Turned and repositioned.
--- NOTE | 2017-11-26 03:00 | NUR ---
Hemodynamically stable.Levophed gtt titrated off.Continue monitoring.
[2017-11-26] MEDS: ALBUTEROL FS 2.5 MG/0.5 ML VIAL.NEB NEB SCH ×7 (03:31→23:17)
[2017-11-26] MEDS: IPRATROPIUM NEB FS 0.5 MG/2.5 ML AMPUL.NEB NEB SCH ×6 (03:31→23:17)
[2017-11-26] MEDS: LACTULOSE 10 G/15 ML UDC (PYXIS) PO SCH ×4 (04:24→21:59)
[2017-11-26] MEDS: MEROPENEM 1 G in IV NS 0.9% 100 ML IV SCH ×3 (05:00→21:01)
[2017-11-26] MEDS: METRONIDAZOLE 500MG/ NS 100ML 500 MG in PREMIX 1 EA IV SCH ×3 (05:01→21:01)
[2017-11-26 05:17] LABS: BASOPHILS % (AUTO) 0.1 % (0.0-2.0); MONOCYTES # (AUTO) 0.4 /CMM (0.1-1.30)
[2017-11-26 05:31] LABS: HEMATOCRIT 29 % (39-51); HEMOGLOBIN 9.6 g/dL (13.5-17.5); LYMPHOCYTES # (AUTO) 0.6 /CMM (0.8-4.8); LYMPHOCYTES % (AUTO) 7.6 % (20.0-44.0); MEAN CORPUSCULAR HEMOGLOBIN 36 PG (26.0-33.0); MEAN CORPUSCULAR HGB CONC 34 g/dl (31.0-36.0); MEAN CORPUSCULAR VOLUME 109 fL (80-96); MONOCYTES % (AUTO) 5.6 % (2.0-12.0); NEUTROPHILS # (AUTO) 6.6 /CMM (1.8-8.9); NEUTROPHILS % (AUTO) 86.7 % (43.0-81.0); PLATELET COUNT (AUTO) 52 /CMM (150-450); RED BLOOD CELL COUNT(AUTO) 2.64 MIL/uL (4.5-6.0)
[2017-11-26 05:32] LABS: CALCIUM, SERUM 6.2 mg/dL (8.5-10.1); CREATININE 3.6 mg/dL (0.6-1.3); POTASSIUM 3.9 mmol/L (3.5-5.1)
[2017-11-26 05:53] LABS: WHITE BLOOD COUNT (AUTO) 7.6 K/uL (4.3-11.0)
[2017-11-26] MEDS: VANCOMYCIN HCL 125 MG/2.5 ML ORAL.SUSP PO SCH ×4 (06:02→23:45)
[2017-11-26] MEDS: IV D5/ 0.9% NACL 1,000 ML IV PRN ×2 (06:02→21:00)
[2017-11-26 06:29] LABS: BAND % (MANUAL) 12 % (0.0-5.0); LYMPHOCYTES % (MANUAL) 17 % (16-48); MONOCYTES % (MANUAL) 4 % (0-11.0); NEUTROPHILS % (MANUAL) 67 (42-76)
--- NOTE | 2017-11-26 06:43 | NUR ---
Patient BP unstable 65/27 Levophed gtt restarted and titrated to keep MAP > 65 now infusing at 6 mcg.Desat to 77%.RT,Lalo notified and increased FIO2 to 100%.SPO2 up to 91%-93%. Incontinent of greenish black liquid stool.Perineal care done.Diaper changed.Turned and repositioned.No acute distress noted.
--- NOTE | 2017-11-26 07:44 | NUR ---
Intubated pt received on mechanical vent. Vent is plugged into a red outlet, alarms are set and audible, and BVM is at bedside. Addendum: 11/26/17 at 0745 by NIRALI WAGGONER RT Amended: Links added.
--- NOTE | 2017-11-26 08:09 | NUR ---
RN NOTES RECEIVED PT IN BED, SEDATED ON DIPRIVAN DRIP. PT INTUBATED ETT 7.5 22CM ON LIPLINE WITH VENT SETTINGS PRESRCIBED: AC 24 TV 500 FIO2 100% PEEP 8. SR ON TICKER MAINTAINER. OGT CLAMPED. MYNOR PICC LINE CDI, ONGOING LEVOPHED@2MCG/MIN, DIPRIVAN@35MCG/KG/MIN, IVF D5NS@100ML/HR. SANDOSTATIN DRIP INFUSING ON L AC. FC PATENT, 20 CC URINE OUTPUT NOTED AT THIS TIME, BILATERAL SOFT WRIST RESTRAINTS IN PLACED, RELEASED AND CHECKED FOR CIRCULATION. PT NOTED WITH EDEMA ON BLE +2. REPOSITIONED FOR COMFORT, SAFETY MAINTAINED. WILL CONT TO MONITOR
[2017-11-26] MEDS: methylPREDNISolone SOD SUCC 40 MG/ML VIAL IV SCH ×3 (08:41→17:43)
[2017-11-26] MEDS: PANTOPRAZOLE 40 MG VIAL IV SCH ×2 (08:41→17:43)
[2017-11-26] MEDS: RIFAXIMIN 550 MG TABLET PO SCH ×2 (08:41→17:43)
[2017-11-26] MEDS: MIDODRINE HCL (5MG) 5 MG TABLET PO SCH ×3 (08:42→18:14)
[2017-11-26] MEDS: Z GUARD REMEDY 2 OZ OINT TP SCH (08:42)
[2017-11-26] MEDS: ASPIRIN 81 MG TAB.CHEW PO SCH (08:42)
[2017-11-26] MEDS: LINEZOLID RTU BAG 600 MG in PREMIX 1 EA IV SCH (09:11)
--- NOTE | 2017-11-26 10:10 | NUR ---
RN NOTES PT WAS ON SEDATION VACATION, DOESNT TRACK, BUT ABLE TO FOLLOW COMMANDS. DURING SEDATION VACATION PT NOTED WITH TACHYPNEA AND APPEARS UNCOMFORTABLE. RESUMED DIPRIVAN SEDATION.
--- NOTE | 2017-11-26 11:28 | NUR ---
WOUND CARE CONSULT: PT PRESENTS WITH DEEP TISSUE INJURY TO SACRUM WHICH IS INTACT. PT NOTED TO HAVE DUSKY COLOR TO PLANTAR FEET, GENERALIZED EDEMA (4+ PITTING EDEMA TO EXTREMITIES), RT BUTTOCK ABRASION, RT HIP DRY ABRASIONS, MULTIPLE AREAS OF BRUISING, PRESENT ON ADMISSION. PT IS IMMOBILE, INCONTINENT OF LIQUID STOOL AND INTUBATED. FIRST STEP MATTRESS TO BE PLACED. ALL SKIN PROTECTION AND WOUND RECOMMENDATIONS DISCUSSED WITH NURSING STAFF. FLEXISEAL INSERTED BY NURSE. WILL SEE PRN. PEREZ IN AGREEMENT WITH PLAN OF CARE. Addendum: 11/26/17 at 1134 by ADILIA GR WNDNU Amended: Links added.
[2017-11-26 11:52] LABS: ABG BASE EXCESS -3.3 mmol/L; ABG OXYGEN SATURATION 90.4 % (92.0-98.5); ABG PH 7.295 (7.350-7.450); ABG PO2 70.6 mmHg (75.0-100.0); AaDO2 593.4 mmHg; COHb 0.2 % (0.5-1.5); MetHb 0.5 % (0.0-1.5); O2Hb 89.8 % (94.0-97.0); SITE, ABG Right Brachial; VENT MODE, BG AC 24 500 100% +8
--- NOTE | 2017-11-26 13:00 | NUR ---
RN NOTES DR FINLEY AT BEDSIDE, PT WAS SEEN AND EVALUATED. PT HAD LIQUID STOOL OVERNIGHT, FLEXISEAL PLACED, MD AWARE. CURRENT EVENTS DISCUSSED WITH MD. PT ANURIC, VERY MIN UO NOTED, VERIFIED WITH MD TO CONT IVF D5NS@125ML/HR, PER MD TO CONTINUE AND TO GET CVP READING. LEVOPHED RUNNING @MCG/MIN. STILL ON PROPOFOL@35MCG/KG/MIN.
--- NOTE | 2017-11-26 15:10 | NUR ---
RN NOTES CVP MONITORING READIN. WILL CONT TO MONITOR. PT OFF LEVOPHED AT THIS TIME. WILL MONITOR BP CLOSELY.
[2017-11-26 16:53] LABS: ALBUMIN 1.7 g/dL (3.4-5.0); BILIRUBIN,DIRECT 4.8 mg/dL (0.0-0.2); BILIRUBIN,TOTAL 6.3 mg/dL (0.2-1.0); TOTAL PROTEIN, SERUM 4.6 g/dL (6.4-8.2)
--- NOTE | 2017-11-26 19:00 | NUR ---
GRADUATE INTERNSHIP NOTES Received patient orally intubated,on the vent on AC mode,Sedated on Propofol drip,responds only with very minimal cough when suctioned via OET.,no movement note don all extremities.PICC line via MYNOR to CVP reading.OGT clamped for meds .placement confirmed by auscultation.Generalyzed swelling of all extremities including scrotal edema.Flexiseal intact draining liquid /greenish BM.Comfort care done.needs attended.
[2017-11-26] MEDS: LEVOFLOXACIN 500 MG /D5W 100ML 500 MG in PREMIX 1 EA IV SCH (20:15)
[2017-11-26] MEDS: DOXYCYCLINE HYCLATE (100 MG) 100 MG TABLET PO SCH (23:53)
[2017-11-27] VITALS (42 sets, daily range): BP systolic 108–172; BP diastolic 50–93
--- NOTE | 2017-11-27 | NUR ---
PLUMBING INSTALLER NOTES Stable ,still seems too sedated ,barely responding even to deep suctioning.and Heart noted to be consistently bradyv=cardic in the low 50's,will wean down Propofol as tolerated.But BP remains stable,asymptomatic otherwise.
[2017-11-27] MEDS: ALBUTEROL FS 2.5 MG/0.5 ML VIAL.NEB NEB SCH ×6 (03:03→23:13)
[2017-11-27] MEDS: IPRATROPIUM NEB FS 0.5 MG/2.5 ML AMPUL.NEB NEB SCH ×6 (03:03→23:13)
[2017-11-27] MEDS: PROPOFOL 100 ML IV PRN (03:35)
--- NOTE | 2017-11-27 04:00 | NUR ---
CLINICAL APPLICATIONS MANAGER NOTES Status unchanged,not in distress,but HR still low in the 40's ,Decrease Propofol drip to 15 mcg/kg/min/ Am care done.tolerated,+ cough .
[2017-11-27] MEDS: LACTULOSE 10 G/15 ML UDC (PYXIS) PO SCH ×5 (04:48→22:41)
[2017-11-27] MEDS: MEROPENEM 1 G in IV NS 0.9% 100 ML IV SCH (04:49)
[2017-11-27] MEDS: METRONIDAZOLE 500MG/ NS 100ML 500 MG in PREMIX 1 EA IV SCH ×3 (04:49→21:24)
[2017-11-27] MEDS: VANCOMYCIN HCL 125 MG/2.5 ML ORAL.SUSP PO SCH ×3 (05:15→17:11)
[2017-11-27 05:43] LABS: CALCIUM, SERUM 6.2 mg/dL (8.5-10.1); CREATININE 3.9 mg/dL (0.6-1.3)
--- NOTE | 2017-11-27 07:05 | NUR ---
SOLID WASTE DIVISION SUPERVISOR NOTES Remains sedated now Propofol at 15/mck/kg/min .patient with strong cough. ,and slight gag when suctioned but still not moving much.Still bradycardic despite cutting down on sedation but BP stayed stable.Report given to Stew VILLASENOR
--- NOTE | 2017-11-27 07:15 | NUR ---
RN INITIAL NOTES RECEIVED PT INTUBATED, ON VENT. NO RESPIRATORY DISTRESS NOTED. NO SOB NOTED. HOB ELEVATED. NO SIGNS OF PAIN NOTED. PT ON DIPRIVAN AT 15MCG/KG/MIN. MYNOR PICC LINE ON PLACE. IVF INFUSING. FC IN PLACE. FLEXISEAL INTACT. PT CLEAN AND DRY. PT COMFORTABLE. WILL CONTINUE TO MONITOR.
[2017-11-27] MEDS: IV D5/ 0.9% NACL 1,000 ML IV PRN ×2 (07:59→15:35)
[2017-11-27] MEDS: DOXYCYCLINE HYCLATE (100 MG) 100 MG TABLET PO SCH ×2 (08:44→21:24)
[2017-11-27] MEDS: PANTOPRAZOLE 40 MG VIAL IV SCH ×2 (08:44→17:12)
[2017-11-27] MEDS: methylPREDNISolone SOD SUCC 40 MG/ML VIAL IV SCH ×3 (08:45→17:12)
[2017-11-27] MEDS: MIDODRINE HCL (5MG) 5 MG TABLET PO SCH ×3 (08:45→17:12)
[2017-11-27] MEDS: ASPIRIN 81 MG TAB.CHEW PO SCH (08:45)
[2017-11-27] MEDS: RIFAXIMIN 550 MG TABLET PO SCH ×2 (08:47→17:12)
[2017-11-27] MEDS: Z GUARD REMEDY 2 OZ OINT TP SCH (08:48)
[2017-11-27] MEDS: BACITRACIN/POLYMYXIN B 15 GM TUBE TP SCH ×2 (09:00→11:56)
[2017-11-27 09:16] LABS: ABG BASE EXCESS -6.1 mmol/L; ABG OXYGEN SATURATION 96.4 % (92.0-98.5); ABG PCO2 51.4 mmHg (35.0-45.0); ABG PH 7.237 (7.350-7.450); ABG PO2 108.7 mmHg (75.0-100.0); AaDO2 298.9 mmHg; COHb 0.5 % (0.5-1.5); MetHb 0.5 % (0.0-1.5); O2Hb 95.4 % (94.0-97.0); PEEP,BG 12 cm H2O; SITE, ABG Left Brachial
--- NOTE | 2017-11-27 10:00 | NUR ---
RN NOTES SEEN AND EXAMINED BY DR. FINLEY. AWARE OF CURRENT LAB VALUES:WBC 7.6, HGB 9.6, HCT 29, PLATELET 52. NO SIGNS OF ACTIVE BLEEDING NOTED. SODIUM 139, POTASSIUM 4, BUN 65, CREA 3.9. ON IVF. PT OFF SEDATION. AWARE OF ABG RESULT. WILL REALY TO DR. DON. WILL CONTINUE TO MONITOR.
--- NOTE | 2017-11-27 10:24 | NUR ---
RT NOTE VENT CHANGES DONE DUE TO MD ORDER, POST ABG,, WILL MONITOR PT T/O SHIFT.
--- NOTE | 2017-11-27 10:25 | NUR ---
RN NOTES SEEN AND EXAMINED BY DR. DON. AWARE OF CURRENT LAB VALUES AND CXR RESULT. AWARE OF ABG RESULT. ORDERED VENT CHANGES. WILL CLOSELY MONITOR.
[2017-11-27] MEDS: OCTREOTIDE 1,250 MCG in IV NS 0.9% 247.5 ML IV PRN (12:32)
[2017-11-27] MEDS: ALBUMIN 25% 25 GM in PREMIX 1 EA IV SCH ×3 (12:32→22:41)
[2017-11-27 13:05] LABS: ABG OXYGEN SATURATION 97.6 % (92.0-98.5); ABG PH 7.267 (7.350-7.450); ABG PO2 118.1 mmHg (75.0-100.0); AaDO2 261.3 mmHg; MetHb 0.4 % (0.0-1.5); O2Hb 96.2 % (94.0-97.0); PEEP,BG 12 cm H2O; SITE, ABG Left Brachial
--- NOTE | 2017-11-27 13:11 | NUR ---
RN NOTES RPT ABG RELAYED TO DR. DON. TIDAL VOLUME CHANGED TO 550. WILL TITRATE FI02. WILL CONTINUE TO MONITOR.
--- NOTE | 2017-11-27 13:12 | NUR ---
RT NOTE FOLLOWED UP ABG DONE, MD ORDER TO INCREASE VT TO 550, AND DECREASE FIO2 TO 50%, WILL MONITOR CLOSELY
--- NOTE | 2017-11-27 16:58 | NUR ---
RT NOTE RECEIVED PT ON ETT, BILATERAL B/S NOTED, ALAMS ON AND AUDIBLE, VENT PLUGGED INTO RED OUTLET, TXS GIVEN ORDERED NO ADVERSE REACTION NOTED, PT IN STABLE CONDITION AT THIS TIME WILL CONTINUE TO MONITOR CLOSELY
[2017-11-27] MEDS: MEROPENEM 500 MG in IV NS 0.9% 50 ML IV SCH (17:11)
[2017-11-27] MEDS: CLOTRIMAZOLE 1% 15 GM TUBE TP SCH (17:12)
--- NOTE | 2017-11-27 18:47 | NUR ---
RN CLOSING NOTES PT REMAINS INTUBATED. NO RESPIRATORY DISTRESS NOTED NO SOB NOTED. NO SIGNS OF PAIN NOTED. OG CLAMPED. PICC LINE IN PLACE. IVF INFUSING. FC IN PLACE. FLEXISEAL ON. TX PROVIDED ORDERED. KEPT CLEAN AND DRY. REPOSITIONED Q2. BLE ELEVATED. WILL ENDORSE FOR CONTINUITY OF CARE.
--- NOTE | 2017-11-27 19:00 | NUR ---
NURSING HOME ASSISTANT NOTES Received patient orally intubated,on the ventilator on AC mode 28,550/50%/peep=12. Off sedation but still minimally responsive ,only with cough,grimaces and opens eyes when suctioned then falls right back to sleep ,no movement noted of any extremities.PICC line via MYNOR to CVP monitory.Sandostatin drip at 10 mcg/hr.OGT clamped for meds. no feeding at this point .Flexiseal to gravity drainage with liquidy ,greenish output.Comfort care done . Skin care done,with generalyzed pitting edema and jaundice ,skin,icteric sclera. Addendum: 11/28/17 at 0123 by HONG LEDEZMA RN Sandostatin drip @ 50 mcg/hr( 10 ml/hr)
--- NOTE | 2017-11-27 21:22 | NUR ---
PT RECEIVED INTUBATED WITH 7.5 ETT SECURED AT 24CM AT THE LIP. NO RESP DISTRESS NOTED. PT TOLERATING VENT SETTINGS. SX'D FOR SML AMT OF TINGED SECRETIONS. VENT ALARMS SET AND AUDIBLE. ETT CUFF ACCOUNTING COORDINATOR. VENT PLUGGED INTO RED OUTLET. AMBU BAG AT BEDSIDE. WILL CONTINUE TO MONITOR. Addendum: 11/27/17 at 2124 by PREM FARRELL RT Amended: Links added.
[2017-11-27] MEDS: LEVOFLOXACIN (500MG) 500 MG TABLET PO SCH (21:25)
[2017-11-28] VITALS (52 sets, daily range): BP systolic 60–157; BP diastolic 35–105
--- NOTE | 2017-11-28 | NUR ---
TOWBOAT CAPTAIN NOTES Still off sedation,seems more responsive to pain,occasionally slightly opens and blinks eyes,grimaces to pain but still unable to move extremities.HR still in the 50's but BP stable.Comfort care done,skin care done.
[2017-11-28] MEDS: VANCOMYCIN HCL 125 MG/2.5 ML ORAL.SUSP PO SCH ×4 (00:17→17:30)
[2017-11-28] MEDS: IV D5/ 0.9% NACL 1,000 ML IV PRN ×2 (01:01→12:36)
[2017-11-28] MEDS: ALBUTEROL FS 2.5 MG/0.5 ML VIAL.NEB NEB SCH ×6 (03:17→23:09)
[2017-11-28] MEDS: IPRATROPIUM NEB FS 0.5 MG/2.5 ML AMPUL.NEB NEB SCH ×6 (03:17→23:09)
[2017-11-28 04:41] LABS: CALCIUM, SERUM 6.3 mg/dL (8.5-10.1); CREATININE 3.7 mg/dL (0.6-1.3); MAGNESIUM 1.4 mg/dL (1.8-2.4); PHOSPHORUS 4.1 mg/dL (2.5-4.9)
[2017-11-28] MEDS: METRONIDAZOLE 500MG/ NS 100ML 500 MG in PREMIX 1 EA IV SCH ×3 (04:45→21:05)
[2017-11-28] MEDS: ALBUMIN 25% 25 GM in PREMIX 1 EA IV SCH (04:46)
[2017-11-28] MEDS: LACTULOSE 10 G/15 ML UDC (PYXIS) PO SCH ×4 (04:47→22:36)
--- NOTE | 2017-11-28 05:00 | NUR ---
CONSTRUCTION MGR NOTES Am care done,patient more responsive ,opens eyes ,grimaces to pain,stays awake longer ,coughing harder,bucking /triggering the ventilator. platelet = 27.
[2017-11-28 05:22] LABS: BASOPHILS % (AUTO) 0.2 % (0.0-2.0); LYMPHOCYTES # (AUTO) 0.6 /CMM (0.8-4.8); LYMPHOCYTES % (AUTO) 7.7 % (20.0-44.0); MONOCYTES # (AUTO) 0.2 /CMM (0.1-1.30); MONOCYTES % (AUTO) 2.9 % (2.0-12.0); NEUTROPHILS # (AUTO) 6.6 /CMM (1.8-8.9); NEUTROPHILS % (AUTO) 89.2 % (43.0-81.0); RDW COEFFICIENT OF VARIATION 21.1 (11.5-15.0); WHITE BLOOD COUNT (AUTO) 7.4 K/uL (4.3-11.0)
[2017-11-28 05:30] LABS: HEMOGLOBIN 9.1 g/dL (13.5-17.5); RED BLOOD CELL COUNT(AUTO) 2.64 MIL/uL (4.5-6.0)
[2017-11-28] MEDS: MEROPENEM 500 MG in IV NS 0.9% 50 ML IV SCH ×2 (05:30→17:29)
[2017-11-28 05:31] LABS: HEMATOCRIT 28 % (39-51); MEAN CORPUSCULAR HEMOGLOBIN 35 PG (26.0-33.0); MEAN CORPUSCULAR HGB CONC 33 g/dl (31.0-36.0); MEAN CORPUSCULAR VOLUME 105 fL (80-96)
[2017-11-28] MEDS: CLOTRIMAZOLE 1% 15 GM TUBE TP SCH ×2 (05:31→17:31)
[2017-11-28 05:35] LABS: PLATELET COUNT (AUTO) 27 /CMM (150-450)
[2017-11-28 05:55] LABS: BAND % (MANUAL) 3 % (0.0-5.0); LYMPHOCYTES % (MANUAL) 9 % (16-48); MONOCYTES % (MANUAL) 2 % (0-11.0); NEUTROPHILS % (MANUAL) 86 (42-76)
--- NOTE | 2017-11-28 06:25 | NUR ---
HR GENERALIST NOTES called back,relayed Plt=27 from 52 yesterday.Also made aware that CVP=15-17 and that patient still getting IV fluid @ 125 ml/hr.Said just to refer it to the regular MD in the morning.
--- NOTE | 2017-11-28 07:05 | NUR ---
LICENSED CERTIFIED ORTHOTIST NOTES Report given to Stew VILLASENOR,patient responsive,opening eyes,grimacing to pain,slightly moves arms but still unable to lift .[facility] to follow up on maybe decreasing IV fluid from MD ,CVP=15-17.
--- NOTE | 2017-11-28 07:10 | NUR ---
RN INITIAL NOTES RECEIVED PT INTUBATED, ON VENT. NO RESPIRATORY DISTRESS NOTED. NO SOB NOTED. HOB ELEVATED. NO SIGNS OF PAIN NOTED. OG IN PLACE, CLAMPED. MYNOR PICC LINE ON PLACE. IVF INFUSING. ON SANDOSTATIN AT 10ML/HR. FC IN PLACE. FLEXISEAL INTACT. PT CLEAN AND DRY. PT COMFORTABLE. BLE ELEVATED. WILL CONTINUE TO MONITOR.
[2017-11-28] MEDS: LORAZEPAM INJ 2 MG/ML VIAL IV PRN ×2 (07:40→17:40)
--- NOTE | 2017-11-28 08:00 | NUR ---
Intubated pt received on mechanical vent. ETT is secure. Vent is plugged into a red outlet, alarms are set and audible, and BVM is at bedside. Addendum: 11/28/17 at 0801 by NIRALI WAGGONER RT Amended: Links added.
[2017-11-28 08:12] LABS: ABG BASE EXCESS -8.4 mmol/L; ABG OXYGEN SATURATION 85.1 % (92.0-98.5); ABG PCO2 40.1 mmHg (35.0-45.0); ABG PH 7.269 (7.350-7.450); ABG PO2 59.4 mmHg (75.0-100.0); MetHb 0.6 % (0.0-1.5); O2Hb 83.7 % (94.0-97.0); PEEP,BG 12 cm H2O; SITE, ABG Right Radial; VENT MODE, BG AC 28; VT, ABG 550 mL
[2017-11-28] MEDS: ASPIRIN 81 MG TAB.CHEW PO SCH (08:15)
[2017-11-28] MEDS: methylPREDNISolone SOD SUCC 40 MG/ML VIAL IV SCH ×3 (08:15→17:30)
[2017-11-28] MEDS: DOXYCYCLINE HYCLATE (100 MG) 100 MG TABLET PO SCH ×2 (08:15→21:05)
[2017-11-28] MEDS: RIFAXIMIN 550 MG TABLET PO SCH ×2 (08:15→17:31)
[2017-11-28] MEDS: PANTOPRAZOLE 40 MG VIAL IV SCH (08:16)
[2017-11-28] MEDS: MIDODRINE HCL (5MG) 5 MG TABLET PO SCH ×3 (08:16→17:00)
[2017-11-28] MEDS: BACITRACIN/POLYMYXIN B 15 GM TUBE TP SCH (08:17)
[2017-11-28] MEDS: Z GUARD REMEDY 2 OZ OINT TP SCH (08:17)
--- NOTE | 2017-11-28 10:50 | NUR ---
RN NOTES SEEN AND EXAMINED BY DR. FINLEY. AWARE OF LAB VALUES: WBC 7.4, HGB 9.1, HCT 28, PLATELET 27. NO SIGNS OF ACTIVE BLEEDING NOTED. SODIUM 142, POTASSIUM 4, BUN 74, CREA 3.7. MAGNESIUM 1.4. PT ON IVF AT 125ML/HR. ON SANDOSTATIN AT 10ML/HR. OG CLAMPED. PT CVP READING, 14. MD ALSO AWARE OF LATEST CXR RESULT. FI02 TITRATED, 02 SAT WENT DOWN TO 86-88% EARLIER. AWAITING FOR ORDER/S. WILL CONTINUE TO MONITOR.
--- NOTE | 2017-11-28 12:10 | NUR ---
RN NOTES SEEN AND EXAMINED BY DR. SALEEM. AWARE OF CURRENT LAB VALUES AND CXR RESULT. PT ON IVF. ON SANDOSTATIN AT 10ML/HR. PER MD, WILL CALL NEXT OF KIN FOR HD CATH PLACEMENT AND HD CONSENT. WILL CONTINUE TO MONITOR.
--- NOTE | 2017-11-28 12:23 | NUR ---
PER DR SALEEM'S INSTRUCTIONS I CALLED PT'S NEXT OF KIN MARIBEL HARMAN AND BROTHER PRESTON AND LEFT MESSAGES ON EACH PHONE REGARDING CONSENT FOR HEMODIALYSIS AND HD CATH PLACEMENT
--- NOTE | 2017-11-28 12:55 | NUR ---
RN NOTES SEEN AND EXAMINED BY DR. DON. AWARE OF LATEST LAB VALUES AND CXR RESULT. PT FI02 TITRATED EARLIER D/T 02 SAT 86-88%. KEPT HOB ELEVATED. WILL CLOSELY MONITOR.
[2017-11-28] MEDS: RENAL NOVASOURCE 1,000 ML BOTTLE GT PRN (13:05)
[2017-11-28 15:37] LABS: INR 1.74 (0.87-1.13)
[2017-11-28] MEDS: Magnesium 1GM/D5W 100ML PREMIX 100 ML IV SCH ×2 (18:46→20:03)
[2017-11-28] MEDS: PROPOFOL 100 ML IV PRN (18:47)
--- NOTE | 2017-11-28 18:56 | NUR ---
RN NOTES DR. DON IN THE UNIT. MADE AWARE THAT PT IS TACHYPNEIC, 38. 02 SAT 0N 80S. FI02 TITRATED TO 100%. PT STARTED ON DIPRIVAN AT 5MCG/MG/MIN. MD ASSESSED PT AND ORDERED TO INCREASE PEEP TO +14. WILL CLOSELY MONITOR.
[2017-11-28] MEDS ORDERED: Magnesium 1 GM/2 ML VIAL IV ONE (19:00)
--- NOTE | 2017-11-28 19:00 | NUR ---
RN INITIAL NOTES RECEIVED PATIENT SEDATED ON DIPRIVAN DRIP PER MD ORDER DUE TO RESP DISTRESS AND TACHYPNEA. INTUBATED AND ON VENT WITH SETTINGS AC 28, TV 500, FIO2 100%, PEEP 14, ETT 7.5/22@LIP, SATURATING 80'S. VENT CHANGES ORDERED BY DR DON DUE TO CURRENT RESP STATUS. CURRENTLY SR/ST ON THE MONITOR, HR 90-100'S. OG TUBE TO NOVASOURCE FEEDING @ 40MLS/HR, NO RESIDUALS. SWAIN CATH AND FLEXISEAL ARE BOTH INTACT. RIGHT UPPER ARM PICC WITH D5NS @ 125MLS/HR, RIGHT HAND 20G AND LEFT AC 18G, ALL FLUSHED AND PATENT, NO S/S OF INFILTRATION/INFECTION, DRESSING CDI. BED LOW AND LOCKED, SIDERAILS UP, BED ALARM ON. WILL CLOSELY MONITOR
--- NOTE | 2017-11-28 19:39 | NUR ---
VT CHANGED TO [address] DON. Addendum: 11/28/17 at 1940 by PREM FARRELL RT Amended: Links added.
--- NOTE | 2017-11-28 19:42 | NUR ---
PEEP CHANGED TO [address] DON. Addendum: 11/28/17 at 1943 by PREM FARRELL RT Amended: Links added.
[2017-11-28] MEDS ORDERED: NOREPINEPHRINE 4 MG/4 ML AMPUL IV ONE (20:08)
[2017-11-28] MEDS: NOREPINEPHRINE 8 MG in IV D5W 500 ML IV PRN (20:13)
--- NOTE | 2017-11-28 20:20 | NUR ---
RN NOTES CURRENT BLOOD PRESSURES ARE 62/37, 61/38, 60/28 CONSECUTIVELY WITH HR 80'S. REDUCED THE DIPRIVAN RATE AND RESTARTED PRN LEVOPHED DRIP. WILL CLOSELY MONITOR
--- NOTE | 2017-11-28 20:23 | NUR ---
PT RECEIVED INTUBATED ON VENT. TOLERATING VENT SETTINGS. SX'D FOR MOD AMT OF THICK YELLOW SECRETIONS. VENT ALARMS SET AND AUDIBLE. AMBU BAG AT BEDSIDE. VENT PLUGGED INTO RED OUTLET. WILL CONTINUE TO MONITOR. Addendum: 11/28/17 at 2024 by PREM FARRELL RT Amended: Links added.
[2017-11-29] VITALS (82 sets, daily range): BP systolic 72–135; BP diastolic 42–80
[2017-11-29] MEDS: IV D5/ 0.9% NACL 1,000 ML IV PRN ×2 (00:35→11:58)
[2017-11-29] MEDS: VANCOMYCIN HCL 125 MG/2.5 ML ORAL.SUSP PO SCH ×5 (00:35→23:03)
[2017-11-29] MEDS ORDERED: OCTREOTIDE 500 MCG/ML VIAL ONE (01:59)
--- NOTE | 2017-11-29 02:00 | NUR ---
RN NOTES PER RENAL MD NOTES, CONTINUED OCTREOTIDE GTT @ 10MLS/HR
[2017-11-29] MEDS: OCTREOTIDE 1,250 MCG in IV NS 0.9% 247.5 ML IV PRN ×2 (02:06→16:46)
[2017-11-29] MEDS: ALBUTEROL FS 2.5 MG/0.5 ML VIAL.NEB NEB SCH ×6 (03:42→23:16)
[2017-11-29] MEDS: IPRATROPIUM NEB FS 0.5 MG/2.5 ML AMPUL.NEB NEB SCH ×6 (03:42→23:16)
[2017-11-29] MEDS: LACTULOSE 10 G/15 ML UDC (PYXIS) PO SCH ×4 (04:01→23:03)
[2017-11-29] MEDS: METRONIDAZOLE 500MG/ NS 100ML 500 MG in PREMIX 1 EA IV SCH (04:01)
[2017-11-29] MEDS: CLOTRIMAZOLE 1% 15 GM TUBE TP SCH ×2 (04:02→16:44)
[2017-11-29] MEDS: MEROPENEM 500 MG in IV NS 0.9% 50 ML IV SCH ×2 (05:06→17:25)
[2017-11-29 05:17] LABS: ALBUMIN 1.8 g/dL (3.4-5.0); BILIRUBIN,TOTAL 8.6 mg/dL (0.2-1.0); CREATININE 3.7 mg/dL (0.6-1.3); MAGNESIUM 1.7 mg/dL (1.8-2.4); PHOSPHORUS 5.1 mg/dL (2.5-4.9); POTASSIUM 4.2 mmol/L (3.5-5.1)
[2017-11-29 05:22] LABS: CALCIUM, SERUM 5.6 mg/dL (8.5-10.1)
--- NOTE | 2017-11-29 06:00 | NUR ---
RN CLOSING NOTES PT REMAINS STABLE OF THE MOMENT. ALL DUE MEDS GIVEN, AM CARE PROVIDED. WILL ENDORSE MILAGROS TO AM RN
[2017-11-29 07:50] LABS: ABG BASE EXCESS -9.2 mmol/L; ABG OXYGEN SATURATION 98.2 % (92.0-98.5); ABG PCO2 39.3 mmHg (35.0-45.0); ABG PH 7.258 (7.350-7.450); ABG PO2 286.3 mmHg (75.0-100.0); AaDO2 387.4 mmHg; COHb 0.7 % (0.5-1.5); O2Hb 96.5 % (94.0-97.0); PEEP,BG 14 cm H2O; SITE, ABG Right Radial; VT, ABG 500 mL
--- NOTE | 2017-11-29 08:00 | NUR ---
ICU/RN INITIAL NOTES,AM RECEIVED REPORT FROM NIGHT NURSE. PT INTUBATED ETT 7.5, 22 CM AT THE LIP. PT ON VENT SETTINGS ORDERED BY MD. PT TACHYPNEIC, OVER BREATHING VENT. ABG DONE. PT DOES NOT OPEN EYES, DOES NOT FOLLOW COMMANDS. PT ON TELE, SINUS TACH. SWAIN IN PLACE, MINIMAL URINE OUTPUT NOTED, PT SCHEDULED FOR HD CATH PLACEMENT TODAY. PICC LINE AND PIV'S PATENT AND INTACT, NO S/S OF INFECTION OR INFILTRATION NOTED. IV FLUIDS AND SANDOSTATIN INFUSING PER MD ORDERS. CVP ZEROED AND CALIBRATED. ALL NEEDS WILL BE ATTENDED TO, SAFETY MEASURES TAKEN, BED IN LOW POSITION, SIDE RAILS UP, CALL LIGHT WITHIN REACH. WILL CONTINUE CARE
[2017-11-29] MEDS: RIFAXIMIN 550 MG TABLET PO SCH ×2 (08:38→16:45)
[2017-11-29] MEDS: DOXYCYCLINE HYCLATE (100 MG) 100 MG TABLET PO SCH ×2 (08:38→20:34)
[2017-11-29] MEDS: ASPIRIN 81 MG TAB.CHEW PO SCH (08:38)
[2017-11-29] MEDS: methylPREDNISolone SOD SUCC 40 MG/ML VIAL IV SCH ×3 (08:38→16:44)
[2017-11-29] MEDS: Z GUARD REMEDY 2 OZ OINT TP SCH (08:41)
[2017-11-29] MEDS: MIDODRINE HCL (5MG) 5 MG TABLET PO SCH ×3 (08:41→16:44)
[2017-11-29] MEDS: BACITRACIN/POLYMYXIN B 15 GM TUBE TP SCH (08:43)
[2017-11-29] MEDS: LORAZEPAM INJ 2 MG/ML VIAL IV PRN (08:46)
[2017-11-29] MEDS: PROPOFOL 100 ML IV PRN ×3 (09:17→19:54)
--- NOTE | 2017-11-29 09:18 | NUR ---
ICU/RN: PER ORDERS RECEIVED TO START DIPRIVAN AT 20MCG/KG/MIN, TITRATE TO KEEP RR <30.
[2017-11-29] MEDS: NOREPINEPHRINE 8 MG in IV D5W 500 ML IV PRN (10:23)
[2017-11-29] MEDS ORDERED: Calcium Gluconate 1GM/10ML 4.65 MEQ in IV NS 0.9% 50 ML IV ONE (11:00)
[2017-11-29] MEDS: ALBUMIN 25% 25 GM in PREMIX 1 EA IV SCH ×3 (12:16→21:05)
[2017-11-29] MEDS: Magnesium 1GM/D5W 100ML PREMIX 100 ML IV SCH ×2 (12:17→14:39)
[2017-11-29] MEDS: METRONIDAZOLE 500 MG TABLET GT SCH ×2 (12:17→20:33)
[2017-11-29] MEDS: RENAL NOVASOURCE 1,000 ML BOTTLE GT PRN (15:21)
[2017-11-29 15:28] LABS: BASOPHILS % (AUTO) 0.1 % (0.0-2.0); LYMPHOCYTES % (AUTO) 4.3 % (20.0-44.0); MEAN CORPUSCULAR HEMOGLOBIN 47 PG (26.0-33.0); MEAN CORPUSCULAR VOLUME 121 fL (80-96); MONOCYTES # (AUTO) 0.1 /CMM (0.1-1.30); MONOCYTES % (AUTO) 0.4 % (2.0-12.0); NEUTROPHILS # (AUTO) 22.4 /CMM (1.8-8.9); NEUTROPHILS % (AUTO) 95.2 % (43.0-81.0); RDW COEFFICIENT OF VARIATION 22.1 (11.5-15.0); WHITE BLOOD COUNT (AUTO) 23.5 K/uL (4.3-11.0)
[2017-11-29 15:29] LABS: HEMOGLOBIN 6.9 g/dL (13.5-17.5); RED BLOOD CELL COUNT(AUTO) 1.48 MIL/uL (4.5-6.0)
[2017-11-29 15:30] LABS: HEMATOCRIT 18 % (39-51); MEAN CORPUSCULAR HGB CONC 39 g/dl (31.0-36.0); PLATELET COUNT (AUTO) 41 /CMM (150-450)
--- NOTE | 2017-11-29 16:35 | NUR ---
ICU/RN: BETSY MERLOS (DR.ATIYAS MEYER)AT BEDSIDE. HD CATH PLACED. HD SCHEDULED FOR TODAY. NO S/S OF BLEEDING NOTED. WILL CONTINUE TO MONITOR AND ASSESS. PER PELEG ORDERED RECEIVED TO TRANSFUSE UNITS PRBCS WITH HD. WILL FOLLOW THROUGH
[2017-11-29 17:45] LABS: BASOPHILS % (MANUAL) 0 % (0.0-2.0); EOSINOPHILS % (MANUAL) 0 % (0-4)
[2017-11-29 17:49] LABS: BAND % (MANUAL) 16 % (0.0-5.0); NEUTROPHILS % (MANUAL) 67 (42-76)
[2017-11-29 17:50] LABS: LYMPHOCYTES % (MANUAL) 15 % (16-48); MONOCYTES % (MANUAL) 2 % (0-11.0)
--- NOTE | 2017-11-29 19:00 | NUR ---
RN INITIAL NOTES RECEIVED PATIENT SEDATED ON DIPRIVAN DRIP @ 30MCG/KG/MIN. INTUBATED AND ON VENT WITH SETTINGS AC 28, TV 550, FIO2 60%, PEEP 12, ETT 7.5/22@LIP, SATURATING WELL, NO S/S OF RESP DISTRESS. CURRENTLY SR ON THE MONITOR, HR 70'S. OG TUBE TO NOVASOURCE FEEDING @ 40MLS/HR, NO RESIDUALS. SWAIN CATH AND FLEXISEAL ARE BOTH INTACT. RIGHT FEMORAL HD CATH NOTED, CURRENTLY ON HEMODIALYSIS. RIGHT UPPER ARM PICC WITH D5NS @ 50MLS/HR AND SANDOSTATIN @ 10MLS/HR, RIGHT HAND 20G AND LEFT AC 18G, ALL FLUSHED AND PATENT, NO S/S OF INFILTRATION/INFECTION, DRESSING CDI. BED LOW AND LOCKED, SIDERAILS UP, BED ALARM ON. WILL CLOSELY MONITOR
--- NOTE | 2017-11-29 19:25 | NUR ---
ICU/RN: ENDING NOTES,AM REPORT WILL BE ENDORSED TO NIGHT NURSE. PT ON FIRST HEMODIALYSIS, 2 UNITS PRBC'S TRANSFUSED, NO ADVERSE REACTION NOTED. ALL NEEDS ATTENDED TO, SAFETY MEASURES TAKEN, BED IN LOW POSITION, SIDE RAILS UP, CALL LIGHT WITHIN REACH. PT ON LEVO 5MCG FOR BP SUPPORT. DIPRIVAN AT 30MCG FOR RR CONTROL. IV FLUIDS AND TUBE FEEDING INFUSING ORDERED. LINENS CHANGED, PT REPOSITIONED. WILL CONTINUE CARE
[2017-11-29] MEDS: LEVOFLOXACIN (500MG) 500 MG TABLET PO SCH (20:33)
[2017-11-30] VITALS (93 sets, daily range): BP systolic 14–125; BP diastolic 49–82
[2017-11-30] MEDS: PROPOFOL 100 ML IV PRN ×5 (01:37→19:23)
[2017-11-30] MEDS: IV D5/ 0.9% NACL 1,000 ML IV PRN ×2 (01:38→21:26)
[2017-11-30] MEDS: IPRATROPIUM NEB FS 0.5 MG/2.5 ML AMPUL.NEB NEB SCH ×5 (02:32→20:06)
[2017-11-30] MEDS: ALBUTEROL FS 2.5 MG/0.5 ML VIAL.NEB NEB SCH ×5 (02:32→20:06)
[2017-11-30] MEDS: ALBUMIN 25% 25 GM in PREMIX 1 EA IV SCH (03:28)
[2017-11-30] MEDS: CLOTRIMAZOLE 1% 15 GM TUBE TP SCH ×2 (03:29→16:23)
[2017-11-30] MEDS: LACTULOSE 10 G/15 ML UDC (PYXIS) PO SCH ×4 (03:31→23:03)
[2017-11-30 04:48] LABS: BASOPHILS % (AUTO) 0.1 % (0.0-2.0); HEMOGLOBIN 7.4 g/dL (13.5-17.5); LYMPHOCYTES # (AUTO) 0.8 /CMM (0.8-4.8); LYMPHOCYTES % (AUTO) 4.4 % (20.0-44.0); MEAN CORPUSCULAR HEMOGLOBIN 79 PG (26.0-33.0); MEAN CORPUSCULAR HGB CONC 58 g/dl (31.0-36.0); MEAN CORPUSCULAR VOLUME 138 fL (80-96); MONOCYTES # (AUTO) 0.3 /CMM (0.1-1.30); MONOCYTES % (AUTO) 1.9 % (2.0-12.0); NEUTROPHILS # (AUTO) 16.9 /CMM (1.8-8.9); NEUTROPHILS % (AUTO) 93.6 % (43.0-81.0); RDW COEFFICIENT OF VARIATION 21.3 (11.5-15.0)
--- NOTE | 2017-11-30 04:52 | NUR ---
RECEIVED PT INTUBATED ON ORDERED SETTING. ETT PROPERLY SECURED. VENT/ ALARMS WELL FUNCTIONING. NO DISTRESS NOTED ALL SHIFT. SX PRN MOD THICK YELLOW SECRETIONS. Addendum: 11/30/17 at 0453 by PRETTY MIRZA RT Amended: Links added.
[2017-11-30 05:02] LABS: CALCIUM, SERUM 6.8 mg/dL (8.5-10.1); CREATININE 3.5 mg/dL (0.6-1.3); MAGNESIUM 2.2 mg/dL (1.8-2.4); PHOSPHORUS 5.4 mg/dL (2.5-4.9); POTASSIUM 4.3 mmol/L (3.5-5.1)
[2017-11-30 05:07] LABS: RED BLOOD CELL COUNT(AUTO) 0.93 MIL/uL (4.5-6.0)
[2017-11-30] MEDS: METRONIDAZOLE 500 MG TABLET GT SCH ×2 (05:10→12:23)
[2017-11-30 05:11] LABS: HEMATOCRIT 13 % (39-51); PLATELET COUNT (AUTO) 47 /CMM (150-450)
[2017-11-30] MEDS: VANCOMYCIN HCL 125 MG/2.5 ML ORAL.SUSP PO SCH ×4 (05:11→23:03)
[2017-11-30] MEDS: MEROPENEM 500 MG in IV NS 0.9% 50 ML IV SCH ×2 (05:11→17:23)
[2017-11-30 05:30] LABS: BAND % (MANUAL) 3 % (0.0-5.0); LYMPHOCYTES % (MANUAL) 7 % (16-48); MONOCYTES % (MANUAL) 3 % (0-11.0); NEUTROPHILS % (MANUAL) 87 (42-76)
--- NOTE | 2017-11-30 06:30 | NUR ---
RN CLOSING NOTES PT REMAINS STABLE OF THE MOMENT. ALL DUE MEDS GIVEN, AM CARE PROVIDED. WILL ENDORSE MILAGROS TO AM RN
--- NOTE | 2017-11-30 08:01 | NUR ---
ICU/RN INITIAL NOTES,AM RECEIVED REPORT FROM NIGHT NURSE. PT INTUBATED ETT 7.5, 22 CM AT THE LIP. PT ON VENT SETTINGS ORDERED BY MD. PT SEDATED ON 40 MCG DIPRIVAN. PT ON TELE, SINUS, 70. SWAIN IN PLACE, MINIMAL URINE OUTPUT NOTED. RIGHT FEMORAL HD CATH INSERTED YESTERDAY, HD DONE, WILL HAVE HD TODAY PER MD. PICC LINE AND PIV'S PATENT AND INTACT, NO S/S OF INFECTION OR INFILTRATION NOTED. IV FLUIDS AND SANDOSTATIN INFUSING PER MD ORDERS. CVP ZEROED AND CALIBRATED. ALL NEEDS WILL BE ATTENDED TO, SAFETY MEASURES TAKEN, BED IN LOW POSITION, SIDE RAILS UP, CALL LIGHT WITHIN REACH. WILL CONTINUE CARE
[2017-11-30 08:50] LABS: ABG OXYGEN SATURATION 86.8 % (92.0-98.5); ABG PCO2 37.8 mmHg (35.0-45.0); ABG PH 7.328 (7.350-7.450); AaDO2 323.2 mmHg; COHb 0.9 % (0.5-1.5); MetHb 1.2 % (0.0-1.5); PEEP,BG 12 cm H2O; SITE, ABG Right Radial; VENT MODE, BG AC 28 550 60% +12; VT, ABG 550 mL
[2017-11-30] MEDS: RIFAXIMIN 550 MG TABLET PO SCH ×2 (09:08→16:26)
[2017-11-30] MEDS: methylPREDNISolone SOD SUCC 40 MG/ML VIAL IV SCH ×3 (09:08→16:26)
[2017-11-30] MEDS: DOXYCYCLINE HYCLATE (100 MG) 100 MG TABLET PO SCH ×2 (09:08→20:34)
[2017-11-30] MEDS: MIDODRINE HCL (5MG) 5 MG TABLET PO SCH ×3 (09:09→16:27)
[2017-11-30] MEDS: Z GUARD REMEDY 2 OZ OINT TP SCH (09:10)
[2017-11-30] MEDS: BACITRACIN/POLYMYXIN B 15 GM TUBE TP SCH (09:10)
--- NOTE | 2017-11-30 09:37 | NUR ---
ICU/RN: AT BEDSIDE, PT ASSESSED. ABG DONE AND REVIEWED. PER DR. RIVAS NO SEDATION VACATION DUE TO TACHYPNEA. WILL CONTINUE TO MONITOR AND ASSESS.
--- NOTE | 2017-11-30 13:00 | NUR ---
ICU/RN: PT STARTED ON HEMODIALYSIS. VSS. WILL CONTINUE TO MONITOR AND ASSESS.
--- NOTE | 2017-11-30 13:51 | NUR ---
attempted us abdomen , patient receiving dialysis.; will return for ultrasound
[2017-11-30] MEDS: RENAL NOVASOURCE 1,000 ML BOTTLE GT PRN (16:23)
[2017-11-30] MEDS: OCTREOTIDE 1,250 MCG in IV NS 0.9% 247.5 ML IV PRN (18:01)
--- NOTE | 2017-11-30 19:00 | NUR ---
RN INITIAL NOTES RECEIVED PATIENT SEDATED ON DIPRIVAN DRIP @ 40MCG/KG/MIN. INTUBATED AND ON VENT WITH SETTINGS AC 28, TV 550, FIO2 60%, PEEP 12, ETT 7.5/22@LIP, SATURATING WELL, NO S/S OF RESP DISTRESS. CURRENTLY SR ON THE MONITOR, HR 60'S. OG TUBE TO NOVASOURCE FEEDING @ 40MLS/HR, NO RESIDUALS. SWAIN CATH AND FLEXISEAL ARE BOTH INTACT. RIGHT FEMORAL HD CATH NOTED. RIGHT UPPER ARM PICC WITH D5NS @ 50MLS/HR AND SANDOSTATIN @ 10MLS/HR, RIGHT HAND 20G AND LEFT AC 18G, ALL FLUSHED AND PATENT, NO S/S OF INFILTRATION/INFECTION, DRESSING CDI. BED LOW AND LOCKED, SIDERAILS UP, BED ALARM ON. WILL CLOSELY MONITOR
--- NOTE | 2017-11-30 19:03 | NUR ---
ICU/RN: ENDING NOTES,AM REPORT WILL BE ENDORSED TO NIGHT NURSE. HD DONE, 2 LITERS OUT. ALL NEEDS ATTENDED TO, SAFETY MEASURES TAKEN, BED IN LOW POSITION, SIDE RAILS UP, CALL LIGHT WITHIN REACH. DIPRIVAN AT 40MCG FOR RR CONTROL. IV FLUIDS AND TUBE FEEDING INFUSING ORDERED. LINENS CHANGED, PT REPOSITIONED. WILL CONTINUE CARE
[2017-11-30 21:09] LABS: BASOPHILS % (AUTO) 0.1 % (0.0-2.0); HEMATOCRIT 21 % (39-51); HEMOGLOBIN 7.7 g/dL (13.5-17.5); LYMPHOCYTES # (AUTO) 0.5 /CMM (0.8-4.8); LYMPHOCYTES % (AUTO) 2.3 % (20.0-44.0); MEAN CORPUSCULAR HEMOGLOBIN 43 PG (26.0-33.0); MEAN CORPUSCULAR HGB CONC 38 g/dl (31.0-36.0); MEAN CORPUSCULAR VOLUME 113 fL (80-96); MONOCYTES # (AUTO) 0.1 /CMM (0.1-1.30); MONOCYTES % (AUTO) 0.5 % (2.0-12.0); NEUTROPHILS % (AUTO) 97.1 % (43.0-81.0); WHITE BLOOD COUNT (AUTO) 19.5 K/uL (4.3-11.0)
[2017-11-30 21:35] LABS: RED BLOOD CELL COUNT(AUTO) 1.81 MIL/uL (4.5-6.0)
[2017-11-30 21:36] LABS: PLATELET COUNT (AUTO) 27 /CMM (150-450)
[2017-11-30 21:39] LABS: BAND % (MANUAL) 2 % (0.0-5.0); LYMPHOCYTES % (MANUAL) 4 % (16-48); MONOCYTES % (MANUAL) 2 % (0-11.0); NEUTROPHILS % (MANUAL) 92 (42-76)
--- NOTE | 2017-11-30 21:51 | NUR ---
RN NOTES NOTIFIED ON-CALL ANURADHA LICENSED PROFESSIONAL COUNSELOR FOR CRITICAL LAB VALUE PLATELET 27. PER ANURADHA LICENSED PROFESSIONAL COUNSELOR, TRANSFUSE 1 UNIT PLATELET
[2017-12-01] VITALS (46 sets, daily range): BP systolic 80–138; BP diastolic 48–81
[2017-12-01] MEDS: IPRATROPIUM NEB FS 0.5 MG/2.5 ML AMPUL.NEB NEB SCH ×7 (00:11→23:24)
[2017-12-01] MEDS: ALBUTEROL FS 2.5 MG/0.5 ML VIAL.NEB NEB SCH ×7 (00:11→23:24)
[2017-12-01] MEDS: PROPOFOL 100 ML IV PRN ×5 (00:24→20:54)
[2017-12-01] MEDS: LACTULOSE 10 G/15 ML UDC (PYXIS) PO SCH ×4 (04:26→22:54)
[2017-12-01] MEDS: CLOTRIMAZOLE 1% 15 GM TUBE TP SCH ×2 (04:27→15:34)
[2017-12-01] MEDS: VANCOMYCIN HCL 125 MG/2.5 ML ORAL.SUSP PO SCH ×4 (05:02→22:55)
[2017-12-01] MEDS: MEROPENEM 500 MG in IV NS 0.9% 50 ML IV SCH ×2 (05:02→17:15)
[2017-12-01 05:14] LABS: CALCIUM, SERUM 7.1 mg/dL (8.5-10.1); CREATININE 3.1 mg/dL (0.6-1.3); MAGNESIUM 2.2 mg/dL (1.8-2.4); PHOSPHORUS 6.3 mg/dL (2.5-4.9); POTASSIUM 4.6 mmol/L (3.5-5.1)
[2017-12-01 05:22] LABS: BASOPHILS # (AUTO) 0.1 /CMM (0.0-0.2); BASOPHILS % (AUTO) 0.3 % (0.0-2.0); HEMATOCRIT 21 % (39-51); HEMOGLOBIN 7.8 g/dL (13.5-17.5); LYMPHOCYTES # (AUTO) 0.8 /CMM (0.8-4.8); LYMPHOCYTES % (AUTO) 3.4 % (20.0-44.0); MEAN CORPUSCULAR HEMOGLOBIN 40 PG (26.0-33.0); MEAN CORPUSCULAR HGB CONC 38 g/dl (31.0-36.0); MEAN CORPUSCULAR VOLUME 107 fL (80-96); MONOCYTES # (AUTO) 0.1 /CMM (0.1-1.30); MONOCYTES % (AUTO) 0.6 % (2.0-12.0); NEUTROPHILS # (AUTO) 22.3 /CMM (1.8-8.9); NEUTROPHILS % (AUTO) 95.7 % (43.0-81.0); PLATELET COUNT (AUTO) 57 /CMM (150-450); RDW COEFFICIENT OF VARIATION 22.1 (11.5-15.0); WHITE BLOOD COUNT (AUTO) 23.3 K/uL (4.3-11.0)
[2017-12-01 05:24] LABS: RED BLOOD CELL COUNT(AUTO) 1.94 MIL/uL (4.5-6.0)
[2017-12-01 05:57] LABS: LYMPHOCYTES % (MANUAL) 4 % (16-48); NEUTROPHILS % (MANUAL) 96 (42-76)
--- NOTE | 2017-12-01 06:00 | NUR ---
RN CLOSING NOTES PT REMAINS STABLE OF THE MOMENT. ALL DUE MEDS GIVEN, AM CARE PROVIDED. WILL ENDORSE MILAGROS TO AM RN
--- NOTE | 2017-12-01 07:54 | NUR ---
Received male intubated pt on mechanical vent. Pt ETT is properly secured. Vent is plugged into a red outlet, alarms are set and audible, and BVM is at bedside. Addendum: 12/01/17 at 0755 by NIRALI WAGGONER RT Amended: Links added.
--- NOTE | 2017-12-01 08:00 | NUR ---
PATIENT ORALLY INTUBATED TO FULL VENT SUPPORT. SEDATED ON DIPRIVAN DRIP AT 40 MCG/KG/MIN. WITHDRWAS TO NOXIOUS STIMULI. DOESN'T FOLLOW SIMPLE COMMANDS. BP SATBLE OFF PRESSOR. AFEBRILE. SACNTY URINE OUTPUT.
[2017-12-01] MEDS: methylPREDNISolone SOD SUCC 40 MG/ML VIAL IV SCH ×3 (08:28→16:52)
[2017-12-01] MEDS: RIFAXIMIN 550 MG TABLET PO SCH ×2 (08:28→16:52)
[2017-12-01] MEDS: Z GUARD REMEDY 2 OZ OINT TP SCH (08:28)
[2017-12-01] MEDS: DOXYCYCLINE HYCLATE (100 MG) 100 MG TABLET PO SCH ×2 (08:28→20:41)
--- NOTE | 2017-12-01 08:30 | NUR ---
HEMODIALYSIS STARTED BY HD NURSE. PATIENT SEEN BY DR. RIVAS. ABG RESULTS SEEN BY MD. NO VENT CHANGES AT THIS TIME.
[2017-12-01 09:02] LABS: ABG BASE EXCESS -5.3 mmol/L; ABG OXYGEN SATURATION 87.8 % (92.0-98.5); ABG PCO2 42.6 mmHg (35.0-45.0); ABG PH 7.305 (7.350-7.450); AaDO2 314.9 mmHg; COHb 1.1 % (0.5-1.5); MetHb 0.6 % (0.0-1.5); O2Hb 86.3 % (94.0-97.0); SITE, ABG Left Radial
--- NOTE | 2017-12-01 10:00 | NUR ---
PATIENT SEEN BY DR. EMILIANO SALEEM. SANDOSTATIN DRIP DISCONTINUED. TO START ON PROTONIX IVP.
--- NOTE | 2017-12-01 11:00 | NUR ---
HD COMPLETED WITH 1.5 L OUT. TOLERATED WELL.
[2017-12-01] MEDS: PANTOPRAZOLE 40 MG VIAL IV SCH ×2 (12:33→20:41)
--- NOTE | 2017-12-01 14:00 | NUR ---
NUCLEAR MED HIDA SCAN ORDERED BY REID LORENZ. PATIENT TOO UNSTABLE FOR TEST DUE TO HIGH VENT SETTINGS.
--- NOTE | 2017-12-01 16:00 | NUR ---
COMPLETE PM CARE DONE. SKIN CARE PROVIDED.
[2017-12-01] MEDS: RENAL NOVASOURCE 1,000 ML BOTTLE GT PRN (17:13)
[2017-12-01] MEDS: IV D5/ 0.9% NACL 1,000 ML IV PRN (17:17)
--- NOTE | 2017-12-01 19:00 | NUR ---
NO SIGNIFICANT CHANGES IN CONDITION. AFEBRILE THE WHOLE SHIFT. NO VENT CHANGES. BP STABLE OFF PRESSORS.
--- NOTE | 2017-12-01 20:25 | NUR ---
received pt from day shift, sedated on Diprivan at 30mcg, ST(125-132), on the vent, lungs congested, anasarca, weeping edema, OG to feeding tolerates well, f/c low output, HD pt, rectal tube intact, diarrhea, abdomen distended, v/s stable, no pain, pt turned and repositioned.
[2017-12-01] MEDS: LEVOFLOXACIN (500MG) 500 MG TABLET PO SCH (20:41)
[2017-12-01] MEDS: MORPHINE SULFATE INJ 4 MG/ML DISP.SYRIN IV PRN (22:55)
[2017-12-01] MEDS: LORAZEPAM INJ 2 MG/ML VIAL IV PRN (23:32)
[2017-12-02] VITALS (55 sets, daily range): BP systolic 83–134; BP diastolic 49–80
--- NOTE | 2017-12-02 00:16 | NUR ---
pt is resting in the bed, ST 137-147, RR 34-38, Diprivan increased to 40mcg, Ativan and morphine given, ECG ordered, tolerates feeding, pt turned and repositioned q2hrs, will continue monitoring.
--- NOTE | 2017-12-02 00:36 | NUR ---
EKG shows A flutter Dr Jared Flores called order for metoprolol 25mg received and carried out.
[2017-12-02] MEDS: METOPROLOL TARTRATE 25 MG TABLET PO SCH ×3 (00:42→12:09)
[2017-12-02] MEDS: PROPOFOL 100 ML IV PRN ×4 (00:47→20:42)
--- NOTE | 2017-12-02 01:00 | NUR ---
pt converted to NSR.
[2017-12-02] MEDS: ALBUTEROL FS 2.5 MG/0.5 ML VIAL.NEB NEB SCH ×6 (03:48→23:45)
[2017-12-02] MEDS: IPRATROPIUM NEB FS 0.5 MG/2.5 ML AMPUL.NEB NEB SCH ×6 (03:48→23:45)
[2017-12-02] MEDS: LACTULOSE 10 G/15 ML UDC (PYXIS) PO SCH ×4 (03:50→21:45)
[2017-12-02] MEDS: CLOTRIMAZOLE 1% 15 GM TUBE TP SCH (03:51)
--- NOTE | 2017-12-02 04:42 | NUR ---
pt is resting in the bed, sedated on Diprivan at 30mcg, SR, tolerates feeding, v/s stable, no pain, pt cleaned, changed and repositioned q2hrs.
[2017-12-02 04:51] LABS: CALCIUM, SERUM 7.5 mg/dL (8.5-10.1); CREATININE 3.1 mg/dL (0.6-1.3); MAGNESIUM 2.2 mg/dL (1.8-2.4); PHOSPHORUS 6.5 mg/dL (2.5-4.9); POTASSIUM 4.9 mmol/L (3.5-5.1)
[2017-12-02 05:00] LABS: BASOPHILS % (AUTO) 0.1 % (0.0-2.0); HEMATOCRIT 23 % (39-51); HEMOGLOBIN 7.9 g/dL (13.5-17.5); LYMPHOCYTES # (AUTO) 0.7 /CMM (0.8-4.8); LYMPHOCYTES % (AUTO) 3.5 % (20.0-44.0); MEAN CORPUSCULAR HEMOGLOBIN 36 PG (26.0-33.0); MEAN CORPUSCULAR HGB CONC 34 g/dl (31.0-36.0); MEAN CORPUSCULAR VOLUME 105 fL (80-96); MONOCYTES # (AUTO) 0.1 /CMM (0.1-1.30); MONOCYTES % (AUTO) 0.4 % (2.0-12.0); NEUTROPHILS # (AUTO) 18.3 /CMM (1.8-8.9); RDW COEFFICIENT OF VARIATION 21.4 (11.5-15.0); WHITE BLOOD COUNT (AUTO) 19.1 K/uL (4.3-11.0)
[2017-12-02 05:15] LABS: PLATELET COUNT (AUTO) 37 /CMM (150-450)
[2017-12-02] MEDS: MEROPENEM 500 MG in IV NS 0.9% 50 ML IV SCH ×2 (05:15→18:16)
[2017-12-02] MEDS: VANCOMYCIN HCL 125 MG/2.5 ML ORAL.SUSP PO SCH ×4 (05:15→23:48)
--- NOTE | 2017-12-02 05:27 | NUR ---
FIO2 INCREASED TO 80% DO TO LOW O2 SAT. RN NOTIFIED. Addendum: 12/02/17 at 0528 by PREM FARRELL RT Amended: Links added.
[2017-12-02 05:42] LABS: NEUTROPHILS % (MANUAL) 96 (42-76)
[2017-12-02 05:43] LABS: LYMPHOCYTES % (MANUAL) 4 % (16-48)
[2017-12-02] MEDS: BLOOD SUGAR DIAGNOSTIC 1 EACH STRIP IN SCH ×4 (05:45→23:48)
[2017-12-02] MEDS ORDERED: INSULIN REGULAR, HUMAN 100 UNIT/ML 3 ML VIAL SQ PRN (06:00)
[2017-12-02] MEDS ORDERED: DEXTROSE 50%-WATER 50 ML DISP.SYRIN IV PRN (06:00)
--- NOTE | 2017-12-02 08:00 | NUR ---
ORALLY INTUBATED TO FULL VENT SUPPORT. DIPRIVAN DRIP ONGOING AT 20 MCG/KG/MIN. PATIENT NO RESPONSE TO BOTH VERBAL AND TACTILE STIMULI. NO EYE OPENING. NO GAG/COUCH REFLEX. NO SPONTANEOUS BREATHING NOTED ON THE VENT. DIPRIVAN DRIP TITRATED DOWN TO 10 MCG/KG/MIN AT THIS TIME. BP STABLE OFF PRESSOR. SR ON THE MONITOR 70'S. AFEBRILE. OGT PLACEMENT CONFIRMED WITH HAMILTON STEPHENS IN THE STOMACH. FC OUTPUT IMPROVED FROM YESTERDAY. AFEBRILE.
[2017-12-02] MEDS: methylPREDNISolone SOD SUCC 40 MG/ML VIAL IV SCH ×3 (08:17→16:44)
[2017-12-02] MEDS: DOXYCYCLINE HYCLATE (100 MG) 100 MG TABLET PO SCH ×2 (08:17→21:45)
[2017-12-02] MEDS: RIFAXIMIN 550 MG TABLET PO SCH ×2 (08:17→16:44)
[2017-12-02] MEDS: Z GUARD REMEDY 2 OZ OINT TP SCH (08:18)
[2017-12-02] MEDS: PANTOPRAZOLE 40 MG VIAL IV SCH ×2 (08:18→21:45)
--- NOTE | 2017-12-02 08:35 | NUR ---
PATIENT BROTHER JULIUS AT BEDSIDE VISITING. UPDATED WITH PATIENT STATUS AND PLAN OF CARE. WILL RELAY PATIENT CONDITION TO FAMILY MEMBERS.
[2017-12-02 09:12] LABS: ABG BASE EXCESS -5.3 mmol/L; ABG OXYGEN SATURATION 97.1 % (92.0-98.5); ABG PCO2 36.1 mmHg (35.0-45.0); ABG PH 7.354 (7.350-7.450); ABG PO2 138.1 mmHg (75.0-100.0); AaDO2 394.4 mmHg; COHb 0.8 % (0.5-1.5); O2Hb 95.4 % (94.0-97.0); PEEP,BG 12 cm H2O; SITE, ABG Right Radial; VT, ABG 550 mL
--- NOTE | 2017-12-02 09:15 | NUR ---
PATIENT SEEN AND EXAMINED BY DR. RIVAS AT BEDSIDE. DISCUSSED WITH MD PATIENT NEURO STATUS. AWARE OF LPN RN HOSPICE GAG/NO COUGH REFLEX. UNRESPONSIVE STATE. WILL WEAN OFF DIPRIVAN AT THSI TIME PER MD AND MONITOR . ABG RESLUTS SEEN BY MD WITH VENT CHANGES ORDER. PEEP DOWN TO 10-DONE BY RT.
--- NOTE | 2017-12-02 11:00 | NUR ---
PATIENT MORE TACHYPNEIC ON THE VENT -RATE 35-36. RESUMED DIPRIVAN DRIP AT 20 MCG/KG/MIN. REMAINS UNRESPONSIVE TO VERBAL/TACTILE STIMULI.
--- NOTE | 2017-12-02 12:00 | NUR ---
PATIENT SEEN AND EXAMINED BY ALTON THOMAS. OKAY TO D/C IVF. SPOKE TO PATIENT BROTHER PRESTON VIA PHINE AT LENGTH REGARDING PATIENT CONDITION.
--- NOTE | 2017-12-02 12:20 | NUR ---
PATIENT BROTHER DENISHA HAMMER CALLED AND WISHES TO CHANGE PATIENT CODE STATUS TO DO NOT RESUSCITATE. VERIFIED BY HAMILTON PEARCE. MARTHA DANG NOTIFIED AND MD ORDER PLACED FOR DNR.
--- NOTE | 2017-12-02 12:45 | NUR ---
PATIENT SEEN BY DR. MORGAN FOR CARDIAC FF UP. DISCONTINUED METOPROLOL . PATIENT ON SR 70'S. SBP>95.
--- NOTE | 2017-12-02 13:55 | NUR ---
RT NOTE: Patient received intubated with 7.5 ETT secured at 24 cm mid upper lip line on PB 840 vent. ETT moved from left to right side of mouth via anchor fast. Vent alarms verified and audible. Suctioned and lavaged small amount of thin bloody secretions. Vent plugged into red outlet. Ambu bag at [facility].
--- NOTE | 2017-12-02 17:00 | NUR ---
AFEBRILE. PATIENT MORE TACHYPNEIC ON THE VENT. DIPRIVAN INCREASED TO 30 MCG/KG/MIN. PATIENT BROTHER ZIA AND FAMILY AT BEDSIDE. UPDATED WITH PLAN OF CARE.
[2017-12-02] MEDS: RENAL NOVASOURCE 1,000 ML BOTTLE GT PRN (17:18)
[2017-12-02] MEDS: INSULIN REGULAR, HUMAN 100 UNIT/ML 3 ML VIAL SQ PRN ×2 (18:40→23:50)
--- NOTE | 2017-12-02 20:29 | NUR ---
received pt from day shift, sedated on Diprivan at 30mcg, SR, CVP monitoring, on the vent, lungs congested, anasarca, weeping edema, OG to feeding tolerates well, f/c some output, HD pt, rectal tube in, v/s stable, no pain, pt turned and repositioned.
--- NOTE | 2017-12-02 22:09 | NUR ---
Received pt on vent support, pt stable no respiratory distress noted,alarms audible, ambu bag at bedside, ventilator is plugged into red outlet.Will continue monitoring per MDS orders. Addendum: 12/02/17 at 2209 by CABRERA ZARATE RT Amended: Links added.
[2017-12-03] VITALS (83 sets, daily range): BP systolic 64–153; BP diastolic 34–99
--- NOTE | 2017-12-03 00:27 | NUR ---
pt is resting in the bed, v/s stable, no pain, pt turned and repositioned q2hrs.
[2017-12-03] MEDS: PROPOFOL 100 ML IV PRN (01:41)
[2017-12-03] MEDS: ALBUTEROL FS 2.5 MG/0.5 ML VIAL.NEB NEB SCH ×6 (03:01→22:32)
[2017-12-03] MEDS: IPRATROPIUM NEB FS 0.5 MG/2.5 ML AMPUL.NEB NEB SCH ×6 (03:01→22:32)
[2017-12-03] MEDS: LACTULOSE 10 G/15 ML UDC (PYXIS) PO SCH ×4 (03:47→23:13)
--- NOTE | 2017-12-03 04:33 | NUR ---
pt is resting in the bed, no acute distress overnight, SR, sedated on Diprivan at 30mcg, v/s stable, no pain, pt cleaned, changed and repositioned q2hrs.
[2017-12-03 04:40] LABS: HEMATOCRIT 21 % (39-51); HEMOGLOBIN 7.7 g/dL (13.5-17.5); LYMPHOCYTES # (AUTO) 0.9 /CMM (0.8-4.8); LYMPHOCYTES % (AUTO) 3.8 % (20.0-44.0); MEAN CORPUSCULAR HEMOGLOBIN 43 PG (26.0-33.0); MEAN CORPUSCULAR HGB CONC 37 g/dl (31.0-36.0); MEAN CORPUSCULAR VOLUME 117 fL (80-96); MONOCYTES # (AUTO) 0.2 /CMM (0.1-1.30); MONOCYTES % (AUTO) 0.7 % (2.0-12.0); NEUTROPHILS # (AUTO) 22.3 /CMM (1.8-8.9); NEUTROPHILS % (AUTO) 95.5 % (43.0-81.0); PLATELET COUNT (AUTO) 52 /CMM (150-450); RDW COEFFICIENT OF VARIATION 21.6 (11.5-15.0); WHITE BLOOD COUNT (AUTO) 23.4 K/uL (4.3-11.0)
[2017-12-03 04:59] LABS: RED BLOOD CELL COUNT(AUTO) 1.81 MIL/uL (4.5-6.0)
[2017-12-03 05:07] LABS: ALBUMIN 2.3 g/dL (3.4-5.0); BILIRUBIN,TOTAL 8.4 mg/dL (0.2-1.0); CREATININE 2.9 mg/dL (0.6-1.3); MAGNESIUM 2.3 mg/dL (1.8-2.4); PHOSPHORUS 5.8 mg/dL (2.5-4.9); TOTAL PROTEIN, SERUM 4.7 g/dL (6.4-8.2)
[2017-12-03] MEDS: MEROPENEM 500 MG in IV NS 0.9% 50 ML IV SCH ×2 (05:17→17:51)
[2017-12-03] MEDS: VANCOMYCIN HCL 125 MG/2.5 ML ORAL.SUSP PO SCH ×4 (05:18→23:49)
[2017-12-03] MEDS: INSULIN REGULAR, HUMAN 100 UNIT/ML 3 ML VIAL SQ PRN ×2 (05:22→18:31)
[2017-12-03] MEDS: BLOOD SUGAR DIAGNOSTIC 1 EACH STRIP IN SCH ×3 (05:22→16:39)
--- NOTE | 2017-12-03 07:35 | NUR ---
ICU/RN PT IS INTUBATED ON THE VENT AC MODE,FIO2-60%.PT IS HAVING HD AT THIS TIME BP 72/34,HR144 BPM ,A-FIB WITH RVR . NOTIFIED.LEVOPHED RESTARTED.AMIODARONE DRIP ORDERED.ALBUMIN ORDERED.PT IS SEDATED NOT RESPONSIVE ON ANY STIMULATIONS.F/C DRAINING WITH TEA-COLOR URINE.PICC LINE ON THE RIGHT UPPER ARM.NPO.T-100.5 .SUCTION PROVIDED.
[2017-12-03] MEDS: NOREPINEPHRINE 8 MG in IV D5W 500 ML IV PRN ×2 (07:45→19:38)
[2017-12-03 08:21] LABS: BAND % (MANUAL) 1 % (0.0-5.0); LYMPHOCYTES % (MANUAL) 3 % (16-48); MONOCYTES % (MANUAL) 6 % (0-11.0); NEUTROPHILS % (MANUAL) 90 (42-76)
[2017-12-03] MEDS: AMIODARONE 900 MG in IV D5W 482 ML IV PRN (08:22)
[2017-12-03] MEDS ORDERED: AMIODARONE 150 MG in IV D5W 100 ML IV ONE (08:30)
[2017-12-03] MEDS ORDERED: ALBUMIN 25% 25 GM in PREMIX 1 EA IV ONE (08:30)
[2017-12-03] MEDS: DOXYCYCLINE HYCLATE (100 MG) 100 MG TABLET PO SCH (08:40)
[2017-12-03] MEDS: PANTOPRAZOLE 40 MG VIAL IV SCH ×2 (08:40→21:39)
[2017-12-03] MEDS: RIFAXIMIN 550 MG TABLET PO SCH ×2 (08:40→16:39)
[2017-12-03] MEDS: methylPREDNISolone SOD SUCC 40 MG/ML VIAL IV SCH ×3 (08:40→16:39)
[2017-12-03] MEDS: Z GUARD REMEDY 2 OZ OINT TP SCH (08:41)
--- NOTE | 2017-12-03 09:00 | NUR ---
ICU/RN PT UNABLE TO TOLERATE HD.HR UP TO 177 BPM.ALBUMIN IV GIVEN ,400 ML NS WAS GIVEN BY HD NURSE.AMIODARONE BOLUS GIVEN AND DRIP STARTED ORDERED.PT IS ON LEVOPHED.SEDATION VACATION PROVIDED.DIPRIVAN STOP.PT IS COMATOSE NO RESPONSES. LABS REVIEW.ABG DONE MD NOTIFIED.CONTINUE MONITORING.
[2017-12-03 10:42] LABS: ABG BASE EXCESS 1.5 mmol/L; ABG PCO2 44.7 mmHg (35.0-45.0); ABG PH 7.394 (7.350-7.450); ABG PO2 66.5 mmHg (75.0-100.0); AaDO2 312.1 mmHg; COHb 1.1 % (0.5-1.5); MetHb 0.9 % (0.0-1.5); O2Hb 88.2 % (94.0-97.0); PEEP,BG 10 cm H2O; SITE, ABG Right Radial; VENT MODE, BG AC 28 550 60% +10; VT, ABG 550 mL
[2017-12-03] MEDS: ACETAMINOPHEN 325 MG TABLET PO PRN ×2 (11:38→17:51)
--- NOTE | 2017-12-03 12:00 | NUR ---
ICU/RN DUE MEDS ARE GIVEN ORDERED.SUCTION PROVIDED.REPOSITION FOR COMFORT.
[2017-12-03] MEDS ORDERED: FEE PK DOSING 1 MIN EA MC ONE (18:12)
[2017-12-03] MEDS ORDERED: VANCOMYCIN 500 MG in IV D5W 100 ML IV PRN (18:30)
[2017-12-03] MEDS ORDERED: VANCOMYCIN 1 GM in IV D5W 250 ML IV ONE (18:30)
[2017-12-03] MEDS: METRONIDAZOLE 500MG/ NS 100ML 500 MG in PREMIX 1 EA IV SCH (18:45)
--- NOTE | 2017-12-03 19:00 | NUR ---
RIBBON HANKING MACHINE OPERATOR NOTES Received patient orally intubated,on the ventilator on AC mode,not responding to any stimuli even to suctioning or deep pain.On Levophed drip at 16 mcg/min for BP support. Off feeding at this time due to episode of vomiting earlier.PICC line at [facility],Trialysis catheter at right femoral area (had HD today).did not tolerate well.Extremely edematous all over the body ,+ scrotal edema,jaundice skin and icteric sclera.Patient is DNR, family at bedside.will continue to monitor,comfort care,titrate Levophed as needed.Plan for a family meeting with in am.
--- NOTE | 2017-12-03 22:00 | NUR ---
VEST BUSHELER NOTES Spoke to family,updated on patient's grave status,they understand,states they will meet with MD in am.
[2017-12-04] VITALS (51 sets, daily range): BP systolic 58–127; BP diastolic 19–78
--- NOTE | 2017-12-04 | NUR ---
OIL PRODUCER NOTES Titrated Levophed up to 20 mcg/min.BP 80's to low 90's.Remains unresponsive.
[2017-12-04] MEDS: METRONIDAZOLE 500MG/ NS 100ML 500 MG in PREMIX 1 EA IV SCH ×3 (00:50→12:06)
[2017-12-04] MEDS: INSULIN REGULAR, HUMAN 100 UNIT/ML 3 ML VIAL SQ PRN ×2 (00:53→06:35)
[2017-12-04] MEDS: BLOOD SUGAR DIAGNOSTIC 1 EACH STRIP IN SCH ×3 (00:54→11:50)
[2017-12-04] MEDS: NOREPINEPHRINE 16 MG in IV D5W 500 ML IV PRN ×2 (01:58→09:20)
--- NOTE | 2017-12-04 02:08 | NUR ---
Received pt on vent support, pt stable no respiratory distress noted,alarms audible, ambu bag at bedside, ventilator is plugged into red outlet.Will continue monitoring per MDS orders. Addendum: 12/04/17 at 0208 by CABRERA ZARATE RT Amended: Links added.
--- NOTE | 2017-12-04 04:00 | NUR ---
CARBON CAPTURE POWER PLANT ENGINEER NOTES Levophed now at 30 mcg/min 0500 Levophed drip increase to 35 mcg/min.
[2017-12-04] MEDS: ALBUTEROL FS 2.5 MG/0.5 ML VIAL.NEB NEB SCH ×3 (04:04→11:19)
[2017-12-04] MEDS: IPRATROPIUM NEB FS 0.5 MG/2.5 ML AMPUL.NEB NEB SCH ×3 (04:04→11:19)
[2017-12-04] MEDS: LACTULOSE 10 G/15 ML UDC (PYXIS) PO SCH ×2 (04:18→10:47)
[2017-12-04] MEDS: MEROPENEM 500 MG in IV NS 0.9% 50 ML IV SCH (05:26)
[2017-12-04] MEDS: VANCOMYCIN HCL 125 MG/2.5 ML ORAL.SUSP PO SCH ×2 (05:57→12:08)
--- NOTE | 2017-12-04 06:00 | NUR ---
HOSPICE LIAISON NOTES Levophed at max dose 40 mcg/min ,BP now in the low 80's.MD was called by credit charge authorizer will start Vasopressin drip.Patient fever now down to 100.4,Remains unresponsive.May need to restart feeding as FS=83 mg/dl this AM.will closely monitor.
[2017-12-04] MEDS ORDERED: VASOPRESSIN INJ 20 UNIT/ML VIAL ONE ×2 (06:06→06:15)
[2017-12-04] MEDS ORDERED: VASOPRESSIN INJ 50 UNIT in IV D5W 497.5 ML IV PRN (06:30)
--- NOTE | 2017-12-04 07:00 | NUR ---
ADMISSIONS RECRUITER NOTES Report given to Juanita VILLASENOR.
[2017-12-04] MEDS ORDERED: ALBUMIN 25% 25 GM in PREMIX 1 EA IV PRN (08:00)
--- NOTE | 2017-12-04 08:00 | NUR ---
ICU/RN PT IS INTUBATED ON THE VENT AC MODE,FIO2-100%.ON 2 PRESSORS.ON AMIODARONE DRIP.COMATOSE.GENERALIZED EDEMA PRESENT.F/C IN PLACE,NO URINE OUTPUT.RECTAL TUBE IN. CVP-10,PT IS HAVING HD AT THIS TIME.HD NURSE AT BEDSIDE.ALBUMIN GIVEN TO SUPPORT BLOOD PRESSURE.
[2017-12-04] MEDS: Z GUARD REMEDY 2 OZ OINT TP SCH (08:01)
[2017-12-04] MEDS: methylPREDNISolone SOD SUCC 40 MG/ML VIAL IV SCH ×2 (08:01→12:06)
[2017-12-04] MEDS: PANTOPRAZOLE 40 MG VIAL IV SCH (08:01)
[2017-12-04] MEDS: RIFAXIMIN 550 MG TABLET PO SCH (08:15)
[2017-12-04] MEDS ORDERED: PHENYLEPHRINE 80 MG in IV NS 0.9% 250 ML IV PRN (09:00)
[2017-12-04] MEDS: AMIODARONE 900 MG in IV D5W 482 ML IV PRN (09:22)
--- NOTE | 2017-12-04 09:40 | NUR ---
ICU/RN PT UNABLE TO TOLERATE HD.200 ML OUT ,HD STOP. DUE MEDS ARE GIVEN ORDERED.SUCTION PROVIDED.REPOSITION FOR COMFORT.
[2017-12-04 10:42] LABS: INR 2.68 (0.87-1.13)
--- NOTE | 2017-12-04 12:00 | NUR ---
ICU/RN BS -59.D 50% IV GIVEN ORDERED.PT IS NPO.
--- NOTE | 2017-12-04 13:00 | NUR ---
D/W DR RIVAS AND ALEXIA ADAM WHO JUST HAD FAMILY/DPOA MEETING. PER DR RIVAS'S ORDERS PT IS FOR COMFORT CARE AND DISCONTINUING OF ALL SUPPORT INCLUDING VENTILATOR ONCE ALL FAMILY MEMBERS HAVE VISITED. PER DR RIVAS'S INSTRUCTION DO NOT ADD THIRD PRESSOR AT THIS TIME WITH NEOSYN AND LEVOPHED AT MAXIMUM
[2017-12-04] MEDS ORDERED: MORPHINE SULFATE INJ 4 MG/ML DISP.SYRIN IV PRN (15:00)
[2017-12-04] MEDS: LORAZEPAM INJ 2 MG/ML VIAL IV PRN (15:11)
--- NOTE | 2017-12-04 15:15 | NUR ---
ICU/RN PT IS COMFORT CARE.ALL MEDS STOP.ATIVAN AND NORPHINE SULFATE IV GIVEN ORDERED.PT IS EXTUBATED,FAMILY AT BEDSIDE.
--- NOTE | 2017-12-04 15:16 | NUR ---
PT PRONOUNCED . COMFORT MEASURES STATUS. FAMILY AT BEDSIDE. EXTUBATED ONE MINUTE AGO. NO RESPIRATORY EFFORT. NO OBTAINABLE BP. MONITOR SHOWS RHYTHM OF PEA HR 28 WIDE COMPLEX WITHOUT AUDIBLE HEART TONES OR PALPABLE PULSE. PUPILS FIXED AND DILATED
--- NOTE | 2017-12-04 15:18 | NUR ---
RT PER DR YANES ORDERS PATIENT PLACED ON COMFORT MEASURES, MORPHINE GIVEN AND PATIENT COMPASSIONATELY EXTUBATED. PATIENT WAS PRONOUNCED IMMEDIATELY. FAMILY AT BED SIDE
--- NOTE | 2017-12-04 15:30 | NUR ---
ICU/RN PT IS PAST AWAY AT 15:16.FAMILY AT BEDSIDE.
--- NOTE | 2017-12-04 17:12 | NUR ---
ICU/RN BODY RELEASE TO [facility].
== END 2017-12-04 15:16 | disposition expired | DRG 720 ==
LOC: ER 11:42 → ICU 16:14
PROVIDERS: ADMIT Internal Medicine; ATTEND Internal Medicine
PROC: 5A1955Z Respiratory Ventilation, Greater than 96 Consecutive Hours (ICD-10-PCS; principal; 2017-11-22)
PROC: 5A09457 Assistance with Respiratory Ventilation, 24-96 Consecutive Hours, Continuous Positive Airway Pressure (ICD-10-PCS; principal; 2017-11-22)
PROC: B548ZZA Ultrasonography of Superior Vena Cava, Guidance (ICD-10-PCS; 2017-11-24)
PROC: 0BH17EZ Insertion of Endotracheal Airway into Trachea, Via Natural or Artificial Opening (ICD-10-PCS; 2017-11-24)
PROC: 02HV33Z Insertion of Infusion Device into Superior Vena Cava, Percutaneous Approach (ICD-10-PCS; 2017-11-24)
PROC: 30233R1 Transfusion of Nonautologous Platelets into Peripheral Vein, Percutaneous Approach (ICD-10-PCS; 2017-11-28)
PROC: 06HM33Z Insertion of Infusion Device into Right Femoral Vein, Percutaneous Approach (ICD-10-PCS; 2017-11-29)
PROC: 0JHL3XZ Insertion of Tunneled Vascular Access Device into Right Upper Leg Subcutaneous Tissue and Fascia, Percutaneous Approach (ICD-10-PCS; 2017-11-29)
PROC: 5A1D70Z Performance of Urinary Filtration, Intermittent, Less than 6 Hours Per Day (ICD-10-PCS; 2017-11-29)
PROC: 30233N1 Transfusion of Nonautologous Red Blood Cells into Peripheral Vein, Percutaneous Approach (ICD-10-PCS; 2017-11-29)
PROC: B54BZZA Ultrasonography of Right Lower Extremity Veins, Guidance (ICD-10-PCS; 2017-11-29)
PROC: 5A1D70Z Performance of Urinary Filtration, Intermittent, Less than 6 Hours Per Day (ICD-10-PCS; 2017-11-30)
PROC: 5A1D70Z Performance of Urinary Filtration, Intermittent, Less than 6 Hours Per Day (ICD-10-PCS; 2017-12-01)
PROC: 5A1D70Z Performance of Urinary Filtration, Intermittent, Less than 6 Hours Per Day (ICD-10-PCS; 2017-12-03)
PROC: 5A1D70Z Performance of Urinary Filtration, Intermittent, Less than 6 Hours Per Day (ICD-10-PCS; 2017-12-04)
DX: A41.9 Sepsis, unspecified organism (principal); N17.0 Acute kidney failure with tubular necrosis; K76.7 Hepatorenal syndrome; I21.A1 Myocardial infarction type 2; K22.6 Gastro-esophageal laceration-hemorrhage syndrome; J96.01 Acute respiratory failure with hypoxia; J96.02 Acute respiratory failure with hypercapnia; G93.41 Metabolic encephalopathy; J15.6 Pneumonia due to other Gram-negative bacteria; A04.72 Enterocolitis due to Clostridium difficile, not specified as recurrent; N18.6 End stage renal disease; K70.31 Alcoholic cirrhosis of liver with ascites; K76.0 Fatty (change of) liver, not elsewhere classified; I13.2 Hypertensive heart and chronic kidney disease with heart failure and with stage 5 chronic kidney disease, or end stage renal disease; E87.2 Acidosis; D69.59 Other secondary thrombocytopenia; E87.5 Hyperkalemia; E83.51 Hypocalcemia; I48.91 Unspecified atrial fibrillation; I25.10 Atherosclerotic heart disease of native coronary artery without angina pectoris; E78.5 Hyperlipidemia, unspecified; Z87.891 Personal history of nicotine dependence; Z99.2 Dependence on renal dialysis; Z82.49 Family history of ischemic heart disease and other diseases of the circulatory system; Z88.0 Allergy status to penicillin; Z66 Do not resuscitate; Z59.0 Homelessness; Z51.5 Encounter for palliative care; Z79.899 Other long term (current) drug therapy; D50.9 Iron deficiency anemia, unspecified; F10.20 Alcohol dependence, uncomplicated; I50.9 Heart failure, unspecified; I47.1 Supraventricular tachycardia; I70.0 Atherosclerosis of aorta; E44.0 Moderate protein-calorie malnutrition; K70.40 Alcoholic hepatic failure without coma; K70.11 Alcoholic hepatitis with ascites; L30.4 Erythema intertrigo; L89.159 Pressure ulcer of sacral region, unspecified stage; L89.629 Pressure ulcer of left heel, unspecified stage; L89.619 Pressure ulcer of right heel, unspecified stage; L89.029 Pressure ulcer of left elbow, unspecified stage; F41.9 Anxiety disorder, unspecified; F32.9 Major depressive disorder, single episode, unspecified; M54.5 Low back pain; K20.9 Esophagitis, unspecified; I85.10 Secondary esophageal varices without bleeding; D69.6 Thrombocytopenia, unspecified; R65.21 Severe sepsis with septic shock
CPT/HCPCS: 31720; 36415; 36600; 71045-TC; 71250-TC; 74018; 76700-TC; 80048-TC; 80053-TC; 80074; 80076-TC; 80202-TC; 81000-TC; 82040-TC; 82140-TC; 82272-TC; 82570-TC; 82803-TC; 82962-TC; 83605-TC; 83690-TC; 83735-TC; 83880; 84100-TC; 84155-TC; 84300-TC; 84484-TC; 85025-TC; 85610-TC; 85730-TC; 86704; 86705; 86706; 86803; 86850-TC; 86921-TC; 87040-TC; 87070-TC; 87081-TC; 87086-TC; 87186-TC; 87340; 87400; 90935-TC; 93307-TC; 93970-TC; 94002-TC; 94003-TC; 94660; 94760-TC; 94762-TC; 94799-TC; A4216; A4606; A6402; A6403; C1750; C1751; C9113; G0480; J0282; J0330; J0610; J1650; J1815; J1940; J1956; J2020; J2060; J2185; J2270; J2354; J2370; J2405; J2920; J3370; J3475; J3490; J7030; J7040; J7042; J7050; J7060; P9016-BL; P9034-BL; P9047; Z7610